=== PATIENT | female | born 1950 | race Caucasian/White ===

== ENCOUNTER 2019-12-24 07:54 | Outpatient (CLI) | payer MEDICARE, SELFPAY ==
--- NOTE | ~2019-12-24 | DEXA_ITS ---
Bone Density Report Name: Dayne Smith Age: 69 Sex: Female Ethnicity: White Date of : 1950 Indication: osteopenia; monitoring treatment; height loss; inflammatory bowel disease; prior fracture; Referring Provider: MARIAH, CAYETANO Study: Bone densitometry was performed. Exam Date: December 24, 2019 Accession number: [id number] Bone Density: Region BMD T-score Z-score Classification AP Spine (L1, L2) 0.948 -0.3 1.8 Normal Femoral Neck (Left) 0.658 -1.7 0.2 Osteopenia Total Hip (Left) 0.730 -1.7 -0.1 Osteopenia World Health Organization criteria for BMD impression classify patients as: Normal (T-score at or above -1.0), Osteopenia (T-score between -1.0 and -2.5), or Osteoporosis (T-score at or below -2.5). 10-year Fracture Risk: FRAX not reported because: Treated for osteoporosis Previous Exams: Region Exam Age BMD T-score BMD Change BMD Change Date g/cm2 vs Baseline vs Previous AP Spine(L1, L2) 12/24/2019 69 0.948 -0.3 0.008(0.9%)# 0.034(3.7%)* 09/13/2015 65 0.914 -0.6 -0.026(-2.8%)# -0.026(-2.8%)# 08/05/2013 63 0.940 -0.4 Total Hip(Left) 12/24/2019 69 0.730 -1.7 -0.037(-4.8%)# -0.042(-5.4%)* 09/13/2015 65 0.772 -1.4 0.005(0.6%)# 0.005(0.6%)# 08/05/2013 63 0.767 -1.4 *Denotes significance at 95% confidence level, LSC for AP Spine = 0.022 g/cm2, LSC for Total Hip = 0.027 g/cm2 Clinical Information Provided by Patient: Has had a low trauma fracture Is being treated for osteoporosis Has used the following medications: Fosamax (i.e. alendronate), Vitamin D, Calcium Has the following medical conditions: Inflammatory bowel diseases Patient maximum height was 64 Menopause Age: 48 No regular weight bearing exercise Does not regularly consume dairy products Onset of menses at age 11 Number of children 0 Impression: The patient has low bone mass, based on the Left Total Hip T-score. The patient has risk factors, including: previous fracture. The BMD for the Total Hip(Left) decreased, changing by -5.4% since the last DXA exam. Discussion: SIGNIFICANT BONE LOSS OBSERVED. Adherence to therapy (including calcium and vitamin D intake) should be assessed. If compliance is not a factor, review management and exclusion of secondary causes of bone loss. It is important to ask patients whether they are taking their medications and to encourage continued and appropriate compliance with their osteoporosis therapies to reduce fracture risk. It is also important to review their risk factors and encourage appropr
--- NOTE | ~2019-12-24 | MM_ITS ---
EXAMINATION: MM screening tereza BI w roc HISTORY: Screening mammogram TECHNIQUE: Craniocaudal and mediolateral oblique 3-D tomosynthesis images were obtained and synthetic 2-D images were generated. CAD analysis was submitted and interpreted. COMPARISON: 12/16/2018, 09/13/2015 bilateral digital screening mammogram examinations.... BREAST PARENCHYMAL COMPOSITION: There are scattered areas of fibroglandular density. FINDINGS: Stable mild fibroglandular asymmetry. There is no evidence of suspicious mass, calcificatio n, or architectural distortion to suggest malignancy in either breast. There has been no suspicious i nterval change. IMPRESSION: 1. No mammographic evidence of malignancy. 2. Recommend routine screening mammography in one year. BI-RADS Category 2: Benign finding(s). Reviewed, dictated and finalized at location A. 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
== END 2019-12-24 07:55 | disposition home or self-care (01) ==
LOC: ANHIMG 08:01
PROVIDERS: PCP Internal Medicine; Visit Provider Nurse Practitioner Family
DX: Z12.31 Encounter for screening mammogram for malignant neoplasm of breast (principal); M85.852 Other specified disorders of bone density and structure, left thigh
CPT/HCPCS: 77063; 77067; 77080

== ENCOUNTER 2020-07-14 12:29 | Emergency (ER) | payer MEDICARE, SELFPAY ==
--- NOTE | ~2020-07-14 | CT_ITS ---
EXAMINATION: CT facial & cervical spine wo EXAM DATE: 07/14/2020 13:30 INDICATION: Fell on Friday, head injury. TECHNIQUE: Spiral CT of the facial bones was acquired in the axial plane. Coronal reformatted images were also reviewed. Spiral CT of the cervical spine was performed without contrast. Axial images we re reviewed. Coronal and sagittal reformatted images were also reviewed. The dose-length product (DL P) for this examination was 419.19 mGy-cm. The exposure was tailored according to patient size, and iterative reconstruction (ASIR) was used as additional dose reduction technique. There is no prior s tudy for comparison. FINDINGS: FACIAL CT: There are no displaced acute nasal bone fractures. The mandible, sinuses and orbits are i ntact. The orbits, globes and extraocular muscles are unremarkable. The visualized sinuses and ma stoid air cells are well aerated. CERVICAL CT: There is no evidence of acute cervical fracture. The odontoid process is intact. Pre-d ens space is normal. Prevertebral soft tissue is normal. There are no soft tissue abnormalities joshua ntified. There is no disc space widening or traumatic vertebral body subluxation suspected. There i s moderate to severe disc disease C4-C7. Overall moderate cervical arthropathy. A detailed level by level evaluation of spondylosis can be added as addendum if requested. IMPRESSION: 1. No acute facial or cervical fracture. Reviewed, dictated and finalized at location B.
--- NOTE | ~2020-07-14 | CT_ITS ---
EXAMINATION: CT brain wo con EXAM DATE: 07/14/2020 13:29 INDICATION: Fell on Friday, struck head on ground, head injury. Right orbital bruising. Dizziness. TECHNIQUE: Spiral CT of the head was performed without contrast. Axial, coronal and sagittal images were reviewed. The dose-length product (DLP) for this examination was 605.33 mGy-cm. The exposure w as tailored according to patient size, and iterative reconstruction (ASIR) was used as additional dos e reduction technique. Comparison is made to prior examination from 02/22/2019. FINDINGS: There is no acute intraparenchymal hemorrhage. No evidence of intraparenchymal brain mass lesion. No evidence of acute infarction. Please note that initial head CT has limited sensitivity f or small or acute infarctions. Some dural ossifications. There is mild periventricular and subcorti alen hypodensity, nonspecific but probably related to small vessel ischemic disease. There is modera te prominence of the sulci and ventricles related to cerebral atrophy. There is intracranial caroti d arteriosclerosis. There are no extra-axial collections. There is no mass effect or midline shift. The orbits are unremarkable. Soft tissue is unremarkable. The visualized sinuses and mastoid air cells are well aerated. There is no significant interval change. IMPRESSION: 1. No acute intracranial findings. 2. Chronic age related findings. Reviewed, dictated and finalized at location B.
[2020-07-14 13:00] VITALS: BP 112/59; PULSE 85; RESP 18; TEMP 36.4; O2SAT 98
--- NOTE | 2020-07-14 13:19 | PC.NURSE ---
Pt to CT.
--- NOTE | 2020-07-14 13:19 | PC.NURSE ---
Pt to ED with complaints of fall 5 days ago. Pt denies LOC. Has bruising noted to right eye. Pt denies dizziness or visual changes. Denies pain at this time. A&O x4.
--- NOTE | 2020-07-14 13:46 | ED.HEATRA ---
HPI - Head Injury General Chief complaint: Head Injury Stated complaint: fall, HI Time Seen by Provider: 07/14/20 13:15 Source: patient Mode of arrival: ambulatory Limitations: no limitations History of Present Illness HPI Narrative: Patient is a 70-year-old female sent here by her PCP to be evaluated after head injury from a trip and fall approximately 1 week ago at home. Patient states that she tripped on a rug hit the right side of her face and head, denies LOC. Patient states her pain is mild and does not want anything for pain. Patient states she is only here because she was sent by her doctor. Patient denies any neck pain back pain chest pain abdominal pain or any other extremity pain/injury. Related Data Allergies Allergy/AdvReac Type Severity Reaction Status Date / Time propoxyphene Allergy Mild BODY HEATS Verified 07/14/20 13:10 UP hydrocodone Allergy Unknown Rash Verified 07/14/20 13:10 morphine Allergy Unknown Rash Verified 07/14/20 13:10 codeine AdvReac Mild UPSET Verified 07/14/20 13:10 STOMACH Review of Systems Review of Systems: All systems reviewed & are unremarkable except as noted in HPI and below Constitutional: Constitutional: Denies body ache(s), Denies chills, Denies excessive sweating, Denies fatigue, Denies fever(s), Denies headache(s), Denies lethargy, Denies malaise, Denies weakness and Denies weight loss Eyes: Eyes: Denies blurry vision, Denies change in vision and Denies loss of vision ENT: Denies dizziness, Denies ear discharge, Denies headache(s), Denies lip swelling, Denies epistaxis, Denies nasal congestion, Denies neck pain, Denies throat swelling and Denies tongue swelling Cardiovascular: Cardiovascular: Denies chest pain, Denies chest pain at rest, Denies chest pain with activity, Denies diaphoresis, Denies rapid heart rate, Denies edema, Denies irregular heart rhythm, Denies lightheadedness, Denies palpitations, Denies dyspnea and Denies dyspnea on exertion Respiratory: Respiratory: Denies chest congestion, Denies cough, Denies hemoptysis, Denies dyspnea and Denies dyspnea on exertion Gastrointestinal: Gastrointestinal: Denies abdominal pain, Denies melena, Denies hematochezia, Denies diarrhea, Denies nausea, Denies vomiting and Denies hematemesis Musculoskeletal: Musculoskeletal: Denies abnormal gait, Denies deformity, Denies joint swelling, Denies limited range of motion, Denies neck pain and Denies numbness Neurologic: Denies Abnormal speech present, Denies abnormal gait, Denies confusion, Denies dizziness, Denies headache(s), Denies focal weakness, Denies loss of vision, Denies numbness, Denies Other visual disturbances, Denies Sensory deficit (Neuro) and Denies weakness Psychiatric: Psychiatric: Denies confusion, Denies depression, Denies auditory hallucinations, Denies homicidal ideation and Denies suicidal ideation Endocrine: Endocrine: Denies cold intolerance, Denies excessive sweating, Denies fatigue, Denies heat intolerance and Denies palpitations Hematologic/Lymphatic: Hematologic/Lymphatic: Denies easy bleeding and Denies easy bruising Allergic/Immunologic: Allergic/Immunologic: Denies lip swelling, Denies throat swelling and Denies tongue swelling PMFSH Family History Family History (Updated 05/17/16 @ 23:19 by DOCTOR UNKNOWN) Sibling Depression Family history of malignant neoplasm of ovary Family history of mental disorder Father Family history of malignant neoplasm Family history of diabetes mellitus in first degree relative Family history of heart disease in male family member before age 55 Mother Family history of heart disease in male family member before age 55 Family history of thyroid disease Family history of osteoporosis Family history of mental disorder Depression Family history of cataracts Other Family history of anemia Family history of migraine headaches Social History Social History Smoking status: Never smoker Second hand tob
[2020-07-14] MEDS: TETANUS,DIPHTHERIA,AC PERTUSSIS ADULT (0.5 ML) BOOSTRIX IM (14:11)
--- NOTE | 2020-07-14 14:51 | PC.NURSE ---
Pt in room. Awaiting further orders or disposition. Family member at bedside. Call light within reach.
--- NOTE | 2020-07-14 15:02 | PC.NURSE ---
Pt to nurses station and reports she is leaving as she does not want to wait any longer. ERP was made aware. Pt ambulated out of ED. Unable to obtain discharge vital signs.
== END 2020-07-14 15:02 | disposition home or self-care (01) ==
PROVIDERS: Emergency Provider Emergency Medicine; PCP Nurse Practitioner Family
DX: S00.03XA Contusion of scalp, initial encounter (principal); W18.09XA Striking against other object with subsequent fall, initial encounter; Z23 Encounter for immunization
CPT/HCPCS: 70450; 70486; 72125; 90471; 90715; 99284

== ENCOUNTER 2021-03-09 20:15 | Emergency (ER) | payer MEDICARE, SELFPAY ==
--- NOTE | ~2021-03-09 | XR_ITS ---
EXAMINATION: XR shoulder RT min 2V INDICATION: Right shoulder pain, initial encounter TECHNIQUE: Three views of the right shoulder are submitted. COMPARISON: None FINDINGS: There is an acute, traumatic, closed, comminuted fracture of the proximal humerus. The eveline ral head appears to be anteriorly and inferiorly displaced with respect to the glenoid. The greater t uberosity resides near its normal position. The acromioclavicular joint is normal. IMPRESSION: 1. Comminuted fracture of the proximal right humerus. Reviewed, dictated and finalized at location A.
--- NOTE | ~2021-03-09 | CT_ITS ---
EXAMINATION: CT shoulder RT wo con DATE: 03/09/2021 22:28 INDICATION: Right shoulder pain, humerus fracture TECHNIQUE: Computed tomography (CT) of the right shoulder was performed without intravenous contrast. The dose-length product (DLP) was 239.47 mGy-cm. Automated exposure control and iterative reconstruc tion technique were employed. COMPARISON: Right shoulder radiograph from today FINDINGS: There is a comminuted fracture of the proximal right humerus. The humeral head is displaced inferior and medial to the glenoid. The humeral shaft is partially migrated approximately into the g lenohumeral joint space. The greater tuberosity lies anterior and lateral to the humeral shaft. A lacey nt effusion is present. No additional fracture is identified. The visualized portions of the right th orax are unremarkable. IMPRESSION: 1. Comminuted fracture of the right proximal humerus as detailed above. Reviewed, dictated and finalized at location A.
[2021-03-09 20:17] VITALS: BP 154/82; PULSE 85; RESP 20; TEMP 36.4; O2SAT 99
[2021-03-09] MEDS: oxyCODONE/ACETAMINOPHEN (*CRX) 5-325 MG TABLET 1 TABLET PO (21:36)
--- NOTE | 2021-03-09 23:40 | ED.UPPEXIN ---
HPI - Extremity Injury (Upper) General Chief Complaint: Extremity Injury, Upper Stated Complaint: glf - rt shoulder/arm/elbow pain Time Seen by Provider: 03/09/21 20:19 Source: patient and family Mode of arrival: ambulatory Limitations: no limitations History of Present Illness HPI narrative: 70-year-old female Here for right arm injury Patient was outside with her and stumbled and fell on the sidewalk after they wash their dog She landed on her right side with immediate pain to the right shoulder No loss of consciousness nor any other injuries He has pain and swelling and diminished range of motion there but no numbness in her hand or arm Related Data Allergies Allergy/AdvReac Type Severity Reaction Status Date / Time propoxyphene Allergy Mild BODY HEATS Verified 07/14/20 13:10 UP hydrocodone Allergy Unknown Rash Verified 07/14/20 13:10 morphine Allergy Unknown Rash Verified 07/14/20 13:10 codeine AdvReac Mild UPSET Verified 07/14/20 13:10 STOMACH Review of Systems Review of Systems: All systems reviewed & are unremarkable except as noted in HPI and below Constitutional: Constitutional: Denies headache(s) ENT: Denies headache(s) Cardiovascular: Cardiovascular: Denies chest pain and Denies dyspnea Genitourinary: Genitourinary: Denies urinary frequency Musculoskeletal: Musculoskeletal: Denies back pain, Denies deformity, Reports arthralgias, Reports joint swelling and Denies numbness Integumentary/Breasts: Skin/Breast: Denies wounds Neurologic: Denies headache(s), Denies focal weakness and Denies numbness [facility] Family History Family History (Updated 05/17/16 @ 23:19 by DOCTOR UNKNOWN) Sibling Depression Family history of malignant neoplasm of ovary Family history of mental disorder Father Family history of malignant neoplasm Family history of diabetes mellitus in first degree relative Family history of heart disease in male family member before age 55 Mother Family history of heart disease in male family member before age 55 Family history of thyroid disease Family history of osteoporosis Family history of mental disorder Depression Family history of cataracts Other Family history of anemia Family history of migraine headaches Social History Social History Smoking status: Never smoker Second hand tobacco smoke exposure: Yes Alcohol intake: never Gender identity (if verbalized by the patient): Male Exam Const: General: cooperative, no acute distress and alert Orientation/consciousness: patient oriented x3 (alert) HENMT: Head: normal to inspection, normocephalic, atraumatic, no contusions and no hematomas Ears: external ears normal General nose exam: no epistaxis Eyes: Conjunctivae: conjunctivae normal EOM: EOMs intact bilaterally Neck: Neck: normal visual inspection, supple and no JVD Chest: Chest palpation & inspection: normal inspection of the chest and no tenderness Resp: Effort & Inspection: normal respiratory effort and not labored Auscultation: clear to auscultation bilaterally and other (BS =) Back/Spine/Pelvis: Other: No back tenderness Skin: General skin exam: normal color and no rashes or lesions noted Neuro: General: patient oriented x3 (alert) and moves all extremities Speech: normal speech Extrem: Other: There is swelling of the proximal humerus on the right, it does not appear squared off or dislocated, more likely fractured Elbow and wrist have normal 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 Cifuentes who will see her in the office and asked that we get a CT scan of the shoulder while she is here She was placed in a shoulder immobilizer and tolerated well Vital Signs Vital signs: Vital Signs Temperature 36.4 C 03/09/21 20:17 Pulse Rate 85 03/09/21 20:17 Respiratory Rate 2
[2021-03-10] MEDS: MAG HYDROX/AL HYDROX/SIMETH 30 ML UDC PO (00:05)
[2021-03-10] MEDS: oxyCODONE/ACETAMINOPHEN (*CRX) 5-325 MG TABLET 1 TABLET PO (00:05)
[2021-03-10 00:30] VITALS: BP 149/82; PULSE 83; RESP 18; O2SAT 97
== END 2021-03-10 00:35 | disposition home or self-care (01) ==
PROVIDERS: Emergency Provider Emergency Medicine; PCP Nurse Practitioner Family
DX: S42.291A Other displaced fracture of upper end of right humerus, initial encounter for closed fracture (principal); W01.0XXA Fall on same level from slipping, tripping and stumbling without subsequent striking against object, initial encounter; Y93.K3 Activity, grooming and shearing an animal
CPT/HCPCS: 73030; 73200; 99284; A4565; A9270

== ENCOUNTER 2022-08-10 10:39 | Outpatient (CLI) | payer MEDICARE, SELFPAY ==
[2022-08-10 11:27] LABS: Alanine Aminotransferase 21 U/L (6-35); Albumin Level 3.9 g/dL (3.5-5.1); Alkaline Phosphatase 65 U/L (38-126); Anion Gap 10 mmol/L (8-16); Aspartate Amino Transferase 26 U/L (14-36); Bilirubin,Total 0.2 mg/dL (0.2-1.3); Blood Urea Nitrogen 6 mg/dL (7-17); Carbon Dioxide 27 mmol/L (22-30); Chloride 105 mmol/L (98-107); Estimated Glomerular Filt Rate 49; Glucose 116 mg/dL (65-110); Potassium 3.2 mmol/L (3.4-5.0); Sodium 142 mmol/L (137-145)
[2022-08-10 11:50] LABS: Basophils Percent Auto 0.9 % (0.2-1.2); Eosinophils Absolute Auto 0.2 K/mm3 (0-0.3); Eosinophils Percent Auto 4.5 % (0-4.4); Hematocrit 37.5 % (37.0-47.0); Hemoglobin 11.8 g/dL (12.0-15.0); Immature Granulocyte Absolute 0.01 K/mm3 (0.00-0.031); Immature Granulocyte Percent A 0.2 % (0-0.5); Mean Corpuscular HGB Conc 31.5 g/dl (32-36); Mean Corpuscular Hemoglobin 29.2 pg (26-34); Mean Corpuscular Volume 92.8 fl (80-100); Mean Platelet Volume 9.1 fl (7.4-10.4); Monocytes Absolute Auto 0.7 K/mm3 (0.1-0.6); Monocytes Percent Auto 15.1 % (2.6-8.5); Neutrophils Absolute Auto 2.2 K/mm3 (1.3-6.7); Neutrophils Percent Auto 47.3 % (45.5-73.1); Platelet Count Result 257 k/mm3 (150-375); Red Blood Count 4.04 M/mm3 (4.2-5.4); Red Cell Distribution Width 13.3 % (11.5-14.5); White Blood Count 4.7 K/mm3 (4.5-10.0)
== END 2022-08-10 10:40 | disposition home or self-care (01) ==
LOC: ANHLAB 10:42
PROVIDERS: PCP Nurse Practitioner Family; Visit Provider Registered Nurse
DX: K92.1 Melena (principal)
CPT/HCPCS: 36415; 80053; 85025

== ENCOUNTER 2023-05-20 15:29 | Emergency (ER) | payer MEDICARE, SELFPAY ==
[2023-05-20 15:38] VITALS: BP 116/56; PULSE 86; RESP 20; TEMP 36.9; O2SAT 97
[2023-05-20 15:53] LABS: Basophils Percent Auto 0.7 % (0.2-1.2); Eosinophils Absolute Auto 0.2 K/mm3 (0-0.3); Eosinophils Percent Auto 2.5 % (0-4.4); Hematocrit 36.7 % (37.0-47.0); Hemoglobin 11.7 g/dL (12.0-15.0); Immature Granulocyte Absolute 0.01 K/mm3 (0.00-0.031); Immature Granulocyte Percent A 0.2 % (0-0.5); Lymphocytes Absolute Auto 1.74 K/mm3 (0.9-3.2); Lymphocytes Percent Auto 29.3 % (18.3-44.2); Mean Corpuscular HGB Conc 31.9 g/dl (32-36); Mean Corpuscular Hemoglobin 29.9 pg (26-34); Mean Corpuscular Volume 93.9 fl (80-100); Mean Platelet Volume 9.1 fl (7.4-10.4); Monocytes Absolute Auto 0.5 K/mm3 (0.1-0.6); Monocytes Percent Auto 7.7 % (2.6-8.5); Neutrophils Absolute Auto 3.5 K/mm3 (1.3-6.7); Neutrophils Percent Auto 59.6 % (45.5-73.1); Platelet Count Result 248 k/mm3 (150-375); Red Blood Count 3.91 M/mm3 (4.2-5.4); Red Cell Distribution Width 13.2 % (11.5-14.5); White Blood Count 5.9 K/mm3 (4.5-10.0)
[2023-05-20 16:04] LABS: Alanine Aminotransferase 29 U/L (6-35); Albumin Level 3.9 g/dL (3.5-5.1); Alkaline Phosphatase 57 U/L (38-126); Anion Gap 2 mmol/L (8-16); Aspartate Amino Transferase 32 U/L (14-36); Bilirubin,Total 0.3 mg/dL (0.2-1.3); Blood Urea Nitrogen 9 mg/dL (7-17); Calcium 9.1 mg/dL (8.4-10.2); Carbon Dioxide 26 mmol/L (22-30); Chloride 107 mmol/L (98-107); Estimated CRCL calculation 41 ml/min; Estimated Glomerular Filt Rate 54; Glucose 108 mg/dL (65-110); Sodium 135 mmol/L (137-145)
--- NOTE | 2023-05-20 16:08 | ED.FEMALEGU ---
HPI - Female Genitourinary General Chief complaint: Fever Stated complaint: sent by PCP for fever and UTI for a long time Time Seen by Provider: 05/20/23 15:49 History of Present Illness HPI Narrative: Pt presents with fever for a couple of days. Pt has had UTI intermittently for quite some time and has just completed a course of augmentin and now symptoms have recurred. Pt having dysuria and frequncy. Pt called PCP and advised to go to ER for IV antibiotics. Related Data Allergies Allergy/AdvReac Type Severity Reaction Status Date / Time propoxyphene Allergy Mild BODY HEATS Verified 05/20/23 15:30 UP hydrocodone Allergy Unknown Rash Verified 05/20/23 15:30 morphine Allergy Unknown Rash Verified 05/20/23 15:30 codeine AdvReac Mild UPSET Verified 05/20/23 15:30 STOMACH Review of Systems Review of Systems: All systems reviewed & are unremarkable except as noted in HPI and below PMFSH Family History Family History (Updated 05/17/16 @ 23:19 by DOCTOR UNKNOWN) Sibling Depression Family history of malignant neoplasm of ovary Family history of mental disorder Father Family history of malignant neoplasm Family history of diabetes mellitus in first degree relative Family history of heart disease in male family member before age 55 Mother Family history of heart disease in male family member before age 55 Family history of thyroid disease Family history of osteoporosis Family history of mental disorder Depression Family history of cataracts Other Family history of anemia Family history of migraine headaches Social History Social History Smoking status: Never smoker Second hand tobacco smoke exposure: Yes Alcohol intake: never Gender identity (if verbalized by the patient): Male Exam Const: General: healthy appearing Nutritional Appearance: well nourished Orientation/consciousness: patient oriented x3 Limitations: no limitations Eyes: EOM: EOMs intact bilaterally Neck: Neck: normal visual inspection and no lymphadenopathy Resp: Effort & Inspection: normal respiratory effort Auscultation: clear to auscultation bilaterally Cardio: Rate: regular rate Rhythm: regular rhythm GI: GI Palp: Yes Soft to palpation and Yes Tenderness to palpation present (GI) (mild suprapubic) Auscultation: normal bowel sounds : General: Yes no CVA tenderness Back/Spine/Pelvis: Back: no CVA tenderness Skin: General skin exam: normal color Rashes: no rashes Wounds: no wounds Neuro: General: patient oriented x3, moves all extremities, no meningeal signs and no focal motor deficits Speech: normal speech Extrem: General: normal to inspection and no clubbing, cyanosis or edema Psych: Appearance: grossly normal and well kempt Mental Status: mental status grossly normal Affect: normal affect Attitude: cooperative Course Vital Signs Vital signs: Vital Signs Temperature 98.5 F 05/20/23 15:38 Pulse Rate 86 05/20/23 15:38 Respiratory Rate 20 05/20/23 15:38 Blood Pressure 116/56 L 05/20/23 15:38 Pulse Oximetry 97 05/20/23 15:38 Oxygen Delivery Room Air 05/20/23 15:38 Temperature 98.5 F 05/20/23 15:38 Pulse Rate 84 05/20/23 17:45 Respiratory Rate 16 05/20/23 17:45 Blood Pressure 133/68 05/20/23 17:45 Pulse Oximetry 99 05/20/23 17:45 Oxygen Delivery Room Air 05/20/23 15:38 MDM - Female Genitourinary MDM Narrative Medical decision making narrative: pt seems to have persistent UTI which may have been resistant to augmentin. Will order labs and UA and give IV Rocephin. Lab Data 05/20/23 15:48 05/20/23 15:48 Labs: Lab Results 05/20/23 05/20/23 Range/Units 15:48 17:43 WBC 5.9 (4.5-10.0) K/mm3 RBC 3.91 L (4.2-5.4) M/mm3 Hgb 11.7 L (12.0-15.0) g/dL Hct 36.7 L (37.0-47.0) % MCV 93.9 (80-100) fl MCH 29.9 (26-34) pg MCHC 31.9 L (32-36) g/dl RDW 13.2 (11.5-14.5) % Plt C
[2023-05-20 16:25] VITALS: BP 115/69; PULSE 81; RESP 18; O2SAT 98
[2023-05-20] MEDS: SODIUM CHLORIDE 0.9% IV 1,000 ML 999 ML IV CONT (16:31)
[2023-05-20] MEDS: cefTRIAXone 2 GM/NS 100 ML 2 GM/100 ML BAG IVPB (16:36)
[2023-05-20 17:45] VITALS: BP 133/68; PULSE 84; RESP 16; O2SAT 99
[2023-05-20 18:07] LABS: Appearance Urine Clear (Clear); Color Urine Dark Orange (Yellow); Specific Grav Ur 1.017 (1.001-1.035)
[2023-05-20 18:08] LABS: Bilirubin Urine 2+ (Negative); Blood Urine Negative (Negative); Glucose Urine UA Negative (Negative); Ketones Urine Negative (Negative); Leukocyte Esterase Ur 2+ LEU/UL (Negative); Nitrate Urine Positive (Negative); Protein Urine 1+ mg/dL (Negative); RBC Urine 0-2 /hpf (0-2); WBC Urine 0-5 /hpf
[2023-05-20 18:09] LABS: Squamous Epithelial Cell Urine None seen /hpf (Few)
[2023-05-20 18:11] LABS: Bacteria Urine Trace /hpf; Need Manual Microscopic Yes; Non Pathogenic Casts Present
[2023-05-20 18:12] LABS: Add Urine Microscopic? YES
[2023-05-20 18:27] VITALS: BP 129/77; PULSE 70; RESP 15; O2SAT 99
== END 2023-05-20 18:29 | disposition home or self-care (01) ==
PROVIDERS: Emergency Provider Emergency Medicine; PCP Nurse Practitioner Family
DX: N39.0 Urinary tract infection, site not specified (principal)
CPT/HCPCS: 36415; 80053; 81001; 85025; 87040; 96365; 99284; J0696; J7030

== ENCOUNTER 2023-11-28 23:41 | Emergency (ER) | payer MEDICARE, SELFPAY ==
--- NOTE | ~2023-11-28 | CT_ITS ---
EXAMINATION: CT chest abdomen pelvis w con DATE: 11/29/2023 09:34 INDICATION: Right-sided chest and abdominal pain TECHNIQUE: Transaxial computed tomographic images of the chest, abdomen, and pelvis were obtained aft er the administration of 100 cc of Omnipaque 350 intravenous contrast. The dose-length product (DLP) was 950.09 mGy-cm. Automated exposure control and iterative reconstruction technique were employed. COMPARISON: 07/31/2008 FINDINGS: CHEST CT: There is mild dependent atelectasis of the right lung. A 4 mm subpleural nodule of the left lower lob e demonstrates slight interval increase in size since the 2007 comparison. There is a 7 mm subpleural nodule in the right lower lobe (image 61). There is a 4 mm subpleural nodule in the right middle lob e (image 64). No pleural effusion or pneumothorax. There is a minimally displaced lateral fracture of the right eighth rib. No pathologically enlarged thoracic lymph nodes are identified. The heart size is normal. There is a 10 mm nodule of the right thyroid. There is a moderate-sized sliding hiatal he rnia. There are changes of right total shoulder arthroplasty. ABDOMEN/PELVIS CT: Changes of cholecystectomy are noted. The liver, spleen, pancreas, and adrenal glands are normal. The kidneys are unremarkable. No pathologically enlarged abdominal or pelvic lymph nodes are identified. There are surgical changes of the transverse colon. A moderate volume of colonic stool is present. N o free intraperitoneal gas or evidence of bowel obstruction. There is severe lumbar spondylosis. The urinary bladder is mildly distended. There is an umbilical hernia containing a small amount of anteri or colonic wall. There are changes of right hip arthroplasty. IMPRESSION: 1. Minimally displaced lateral fracture of the right eighth rib. 2. Right lung nodules measuring up to 7 mm. Follow-up low-dose CT in 6-12 months is recommended. 3. No acute findings of the abdomen or pelvis. Reviewed, dictated and finalized at location F. 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 Minimally displaced lateral fracture of the right eighth rib. 2. Right lung nodules measuring up to 7 mm. Follow-up low-dose CT in 6-12 month s is recommended. 3. No acute findings of the abdomen or pelvis.
--- NOTE | ~2023-11-28 | XR_ITS ---
EXAMINATION: XR chest 2V DATE: 11/29/2023 06:17 INDICATION: Right-sided rib pain after fall TECHNIQUE: Frontal and lateral views of the chest are obtained COMPARISON: 08/12/2016 FINDINGS: The lungs are free of acute opacities. No pleural effusion or pneumothorax. The cardiomedia stinal silhouette is normal. There is moderate thoracic spondylosis. There are changes of interval to yoel right shoulder arthroplasty. No rib fracture is identified. IMPRESSION: 1. No acute cardiopulmonary abnormality. No rib fracture identified. Reviewed, dictated and finalized at location F. HER IN
[2023-11-29 00:14] VITALS: BP 120/66; PULSE 80; RESP 15; TEMP 36.1; O2SAT 98
[2023-11-29 05:19] VITALS: BP 122/66; PULSE 78; RESP 15; O2SAT 98
--- NOTE | 2023-11-29 07:24 | ED.FALL ---
HPI - Fall General Chief Complaint: Fall Stated Complaint: right sided rib pain, fall 2 days ago Time Seen by Provider: 11/29/23 07:17 Source: patient History of Present Illness HPI Narrative: 73 years old white female history of balance disorder, lost her balance and fell landed on her walker 2 days ago complaining of severe right lower ribs and right upper quadrant pain, getting worse. Patient is allergic to morphine causing hives, okay with Dilaudid. Patient denies other injuries Related Data Allergies Allergy/AdvReac Type Severity Reaction Status Date / Time propoxyphene Allergy Mild BODY HEATS Verified 11/29/23 05:20 UP hydrocodone Allergy Unknown Rash Verified 11/29/23 05:20 morphine Allergy Unknown Rash Verified 11/29/23 05:20 codeine AdvReac Mild UPSET Verified 11/29/23 05:20 STOMACH Review of Systems Review of Systems: All systems reviewed & are unremarkable except as noted in HPI and below PMFSH Family History Family History Sibling Depression Family history of malignant neoplasm of ovary Family history of mental disorder Father Family history of malignant neoplasm Family history of diabetes mellitus in first degree relative Family history of heart disease in male family member before age 55 Mother Family history of heart disease in male family member before age 55 Family history of thyroid disease Family history of osteoporosis Family history of mental disorder Depression Family history of cataracts Other Family history of anemia Family history of migraine headaches Social History Social History Smoking status: Never smoker Second hand tobacco smoke exposure: Yes Alcohol intake: never Gender identity (if verbalized by the patient): Male Exam Narrative: General appearance: Well-developed, well-nourished Skin: Normal color Head: Normocephalic, nontraumatic Eyes: Clear conjunctiva ENT: Oropharynx normal, ears normal, nose normal Neck: Supple, nontender Chest and respiratory: Airway patent, no respiratory distress, no accessory muscle use, severe tenderness right lower ribs with palpation Heart: Regular rate/rhythm Abdomen: Soft, severe tenderness right upper quadrant, bruises, Vascular: Normal peripheral pulses, normal capillary refill. Musculoskeletal: Normal range of motion, nontender back Neurologic: Alert and oriented ?3, TABLE MAKER is normal as tested, no gross motor deficit Course Vital Signs Vital signs: Vital Signs Temperature 36.1 C L 11/29/23 00:14 Pulse Rate 80 11/29/23 00:14 Respiratory Rate 15 11/29/23 00:14 Blood Pressure 120/66 11/29/23 00:14 Pulse Oximetry 98 11/29/23 00:14 Oxygen Delivery Room Air 11/29/23 00:14 Temperature 36.1 C L 11/29/23 00:14 Pulse Rate 78 11/29/23 09:48 Respiratory Rate 18 11/29/23 09:48 Blood Pressure 129/70 11/29/23 09:48 Pulse Oximetry 99 11/29/23 09:48 Oxygen Delivery Room Air 11/29/23 00:14 MDM - Fall MDM Narrative Medical decision making narrative: Differential diagnosis right rib fracture, pulmonary contusion, pneumothorax, hemothorax, liver injury Workup today showed right 8th rib fracture and pulmonary nodule In the ED patient received Dilaudid IV, Zofran IV and Benadryl IV. Patient was discharged on incentive spirometry. the pt was discharged to home.the pt,s condition upon discharge was fair,education was provided to the pt in reference to the final impression,discharge study results,treatment,prognosis and need for follow up . Differential Diagnosis Differential diagnosis: Likely
[2023-11-29] MEDS: ONDANSETRON INJ 4 MG/2 ML VIAL IV PUSH (07:51)
[2023-11-29] MEDS: HYDROmorphone HCL INJ (*CRX) 1 MG/ML SYR 0.5 MG IV PUSH (07:51)
[2023-11-29] MEDS: SODIUM CHLORIDE 0.9% IV 1,000 ML 999 ML IV CONT (07:52)
[2023-11-29 08:00] VITALS: BP 110/60; PULSE 68; RESP 16; O2SAT 98
[2023-11-29 08:16] LABS: Alanine Aminotransferase 16 U/L (6-35); Albumin Level 3.2 g/dL (3.5-5.1); Alkaline Phosphatase 53 U/L (38-126); Anion Gap 4 mmol/L (8-16); Aspartate Amino Transferase 24 U/L (14-36); Bilirubin,Total 0.2 mg/dL (0.2-1.3); Blood Urea Nitrogen 17 mg/dL (7-17); Calcium 8.6 mg/dL (8.4-10.2); Carbon Dioxide 25 mmol/L (22-30); Chloride 109 mmol/L (98-107); Estimated CRCL calculation 49 ml/min; Estimated Glomerular Filt Rate > 60; Glucose 98 mg/dL (65-110); Lipase 315 U/L (23-300); Potassium 3.6 mmol/L (3.4-5.0); Sodium 138 mmol/L (137-145)
[2023-11-29 08:17] LABS: Basophils Absolute Auto 0.1 K/mm3 (0.0-0.1); Basophils Percent Auto 0.6 % (0.2-1.2); Eosinophils Absolute Auto 0.3 K/mm3 (0-0.3); Eosinophils Percent Auto 3.1 % (0-4.4); Hematocrit 35.7 % (37.0-47.0); Hemoglobin 11.1 g/dL (12.0-15.0); Immature Granulocyte Absolute 0.02 K/mm3 (0.00-0.031); Immature Granulocyte Percent A 0.2 % (0-0.5); Lymphocytes Absolute Auto 2.52 K/mm3 (0.9-3.2); Lymphocytes Percent Auto 28.3 % (18.3-44.2); Mean Corpuscular HGB Conc 31.1 g/dl (32-36); Mean Corpuscular Volume 96.5 fl (80-100); Mean Platelet Volume 8.8 fl (7.4-10.4); Monocytes Absolute Auto 0.8 K/mm3 (0.1-0.6); Monocytes Percent Auto 8.4 % (2.6-8.5); Neutrophils Absolute Auto 5.3 K/mm3 (1.3-6.7); Neutrophils Percent Auto 59.4 % (45.5-73.1); Platelet Count Result 214 k/mm3 (150-375); Red Cell Distribution Width 12.6 % (11.5-14.5); White Blood Count 8.9 K/mm3 (4.5-10.0)
[2023-11-29] MEDS: diphenhydrAMINE HCl INJ 50 MG/ML VIAL 25 MG IV PUSH (08:44)
[2023-11-29 09:48] VITALS: BP 129/70; PULSE 78; RESP 18; O2SAT 99
== END 2023-11-29 14:12 | disposition home or self-care (01) ==
PROVIDERS: Emergency Provider Emergency Medicine; PCP Nurse Practitioner Family
DX: S22.31XA Fracture of one rib, right side, initial encounter for closed fracture (principal); R91.1 Solitary pulmonary nodule; W01.198A Fall on same level from slipping, tripping and stumbling with subsequent striking against other object, initial encounter
CPT/HCPCS: 36415; 71046; 71260; 74177; 80053; 83690; 85025; 96361; 96374; 96375; 99284; J1170; J1200; J2405; J7030; Q9967

== ENCOUNTER 2024-09-07 09:55 | Emergency (ER) | payer MEDICARE, SELFPAY ==
--- NOTE | 2024-09-07 10:26 | PC.NURSE ---
Upon triaging this pt, Pt decided she does not want to be seen and wants to continue to go visit her bf in the ICU. Pt leaves in NAD.
== END 2024-09-07 10:34 | disposition left against medical advice (07) ==
PROVIDERS: PCP Nurse Practitioner Family
DX: Z53.21 Procedure and treatment not carried out due to patient leaving prior to being seen by health care provider (principal)
CPT/HCPCS: 99199

== ENCOUNTER 2024-12-28 15:38 | Outpatient (CLI) | payer MEDICARE, SELFPAY ==
--- NOTE | ~2024-12-28 | US_ITS ---
EXAMINATION: US thyroid DATE: 12/28/2024 17:07 INDICATION: Thyroid nodule. TECHNIQUE: Multiple ultrasound images of the thyroid were obtained. COMPARISON: CT 07/14/2020 FINDINGS: The right thyroid lobe measures 3.6 x 1.4 x 0.9 cm. The left thyroid lobe measures 3.4 x 1.1 x 1.1 c m. In the right thyroid lobe, there is an 11 mm mixed cystic and solid, hypoechoic, wider than tall nodule with smooth margin without echogenic foci (TI-RADS TR3). In the thyroid isthmus, there is a 6 mm solid, hypoechoic, wider than tall nodule with lobular margin without echogenic foci (TR4). IMPRESSION: 1. Small thyroid nodules, likely not clinically significant. No follow-up is needed. Reviewed, dictated and finalized at location B. IMPRESSION: 1. Small thyroid nodules, likely not clinically significant. No follow-up is ne eded.
--- OUTSIDE RECORDS SUMMARY | 2024-12-28 17:39 | XMS_ITS ---
Author Organization [facility] Virtual Care Address [address] [place] [address] Phone Care Team Providers Care Utility Supervisor Boat And Plant Name Role Phone Desirae Bernstein NP Unavailable [phone] Unknown, Notinfile Primary Care Provider Unavail able Yen Dahl RN Unavailable Unavailabl e Active Problems Patient Care Coordination No te Formatting of this note migh t be different from the original. This is a 73 year old female presenting to us at the request of Dr. Akbar Richards for an evaluation of a hiatal hernia. She has a medical history significant for anemia, anxiety, depression, bipolar disorder, GERD, osteoarthritis and osteopenia. She is a never smoker. 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 She had a recent follow up with Dr. Ge with a surveillance chest CT. She complained of a longstanding history of GERD. She reports some dysphagia and occasional choking. She also has post-prandial abdominal pain and shortness of breath. She went a chest CT on 12/17/2023. There is a small pericardial effusion. No mediastinal, axillary or supraclavicular lymphadenopathy. There is a small subcentimeter nodule in the right lobe of the thyroid that appears unchanged. Moderate-sized hiatal hernia. Gallbladder surgically absent. No suspicious abnormalities evident in the upper abdomen. There are scattered subpleural pulmonary nodules which are not appreciably changed from the prior exam, for instance day 7 mm nodule in the right lower lobe, a 4 mm nodule in the right middle lobe and a 6 mm nodule in the left lower lobe. These nodules appear unchanged dating back to 02/16/2008 and are most certainly benign. No suspicious osseous lesions. There is a subacute appearing right lateral 8th rib fracture. With a small amount of callus formation. She underwent a barium swallow study on 12/29/2023. She is here for further surgical evaluation and discussion. 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 Closed reduction under sedation in ED unsuccessful - OR today, scheduled at 11am -NWB RUE, RUE to be maintained in sling -Hold DVT ppx pending surgical plan -Pain control with Percocet 5/325 2 tabs Q4H PRN, Dilaudid 0.2 IV Q4H PRN for breakthrough pain Assessment & Plan (03/15/2021 1:48 AM CDT): -Comminuted 3 part proximal humerus fracture with dislocation of multiple fragments. Closed reduction under sedation in ED unsuccessful -NWB RUE, RUE to be maintained in sling -Hold DVT ppx pending surgical plan -NPO in case of OR today. Clarify surgical plan with ortho in AM. -Pain control with Percocet 5/325 2 tabs Q4H PRN, Dilaudid 0.2 IV Q4H PRN for breakthrough pain Low back pain 01/23/2021 Mechanical complication of i nternal orthopedic device, implant or graft 01/23/2021 Osteoarthritis of hip 01/23/2021 Pain in limb 01/23/2021 Moderate malnutrition 01/12/2021 Bipolar disorder 01/11/2021 Assessment & Plan (03/15/2021 10:49 AM CDT): -Continue home medications (Effexor XR, lamotrigine, trazodone, Risperdal, Paxil, clonazepam) Assessment & Plan (03/15/2021 1:44 AM CDT): -Continue home medications (Effexor XR, lamotrigine, trazodone, Risperdal, Paxil, clonazepam) Assessment & Plan (01/11/2021 4:10 PM CDT): -continue home psych meds Malignant neoplasm of hilus of lung 01/05/2021 Overview (01/05/2021): Added automatically from request for surgery [id number] Malignant carcinoid tumor of lung 12/28/2020 Assessment & Plan (01/12/2021 11:25 AM CDT): 01/11 VATS YRIS segementectomy - plan to remove L CT: follow up post pull chest x-ray - encourage IS, C&DB -ADAT - bowel regimen - DVT prophylaxis - ambulate w/ assistance - Pain mgnt: acute pain team collaborating in the post op pain mgnt: plan to remove epidural today. Add oral pain medication (avoid narcotics per pt request) Pulmonary nodules 11/01/2020 Colonic mass 08/30/2020 Generalized abdominal pain 08/07/2020 Overview (03/14/2022): Added automatically from request for surgery [id number] Black stools 07/17/2020 Elevated fasting blood sugar 07/17/2020 Fall 07/17/2020 Right hip pain 07/17/2020 Acne 04/06/2020 Dysuria 04/06/2020 External hemorrhoid 04/06/2020 Nevus 04/06/2020 Overweight with body mass in dex (BMI) of 27 to 27.9 in adult 04/06/2020 Vitamin D deficiency 04/06/2020 Blood in stool 07/25/2019 Cough 07/25/2019 Dizziness 07/25/2019 Fever 07/25/2019 Weakness 07/25/2019 Falling episodes 03/24/2019 History of alcohol abuse 03/24/2019 History of partial colectomy 03/24/2019 Memory loss 03/24/2019 Near syncope 03/24/2019 Osteopenia of multiple sites 03/24/2019 Abnormal electrocardiography 08/19/2014 Overview (01/24/2017): Electrocardiogram abnormal Anemia 01/03/2013 Gastro-esophageal reflux disease without esophag itis 01/03/2013 Stage 3a chronic kidney disease 01/03/2013 Current Treatment and Therapy Plans No current plan information found. Past Treatment and Therapy Plans No past plan information found. Lifetime Dose Tracking * Chemical Lifetime Dose Automatic Entry Manual Entr y Fluoro Time 2.2 minutes 2.2 minutes 0 minutes Air kerma at the reference point (Ka,r) 1.53 mGy 1 .53 mGy 0 mGy DLP 3,244 mGycm 3,244 mGycm 0 mGycm Resolved Problems Problem Noted Date Diagnosed Date Resolved Date Neuroendocrine tumor 12/28/2020 021 Assessment & Plan (03/15/2021 10:49 AM CDT): -s/p L upper lobectomy 12/[address] showing a carcinoid tumor, grade 1. Per notes, not adjuvant therapy needed. Assessment & Plan (03/15/2021 1:45 AM CDT): -s/p L upper lobectomy 12/[address] with path showing a carcinoid tumor, grade 1. Per notes, not adjuvant therapy needed.
--- OUTSIDE RECORDS SUMMARY | 2024-12-28 17:39 | XMS_ITS | Patient Health Record ---
Author Organization [facility] Address [address] [place] [address] Support Name Relationship Address Phone Erica Smith Guarantor Unknown [phone] Reason For Referral No Information Plan Of Treatment No Information
--- OUTSIDE RECORDS SUMMARY | 2024-12-28 17:39 | XMS_ITS | Clinical Summary ---
Author Organization [facility] Address [address] [place] [address] Care Team Providers Care Software Security Architect Name Role Phone Desirae Bernstein APRN-TEA AND SPICE SUPERVISOR Primary Care Provider [phone] Source Comments [facility],non-owned Affiliates and Associated Physician Practices is amultiple site organization consisting of ambulatory clinics and hospital sitesin [place], [place], [place] and [place]. This disclosure is being madepursuant to the Care Everywhere program and may not contain all information available regarding this patient. Last updated 18.[facility] Social History Tobacco Use Types Packs/Day Years Used Date Smoking Tobacco: Never Assessed Sex and Gender Information Value Date Recorded Sex Assigned at Not on file Gender Identity Not on file Sexual Orientation Not on file Plan of Treatment Health Maintenance Due Date Last Done Comments BONE DENSITY TESTING 1950 HEPATITIS C SCREENING 05/01/1966 DTAP/TDAP/TD VACCINES (1 - Tdap) 1967 PNEUMOCOCCAL VACCINE 50+ (1 of 1 - PCV) 1998 ZOSTER VACCINE (1 of 2) 1998 Respiratory Syncytial Virus (RSV) Vaccine Pt: or over 60 yrs (1 - 1-dose 75+ series) 2023 COVID-19 VACCINE ( - 2023-2 5 season) 2024 INFLUENZA VACCINE (#1) 2024 DEPRESSION SCREENING 10/20/2024 MEDICARE AWV CALENDAR YEAR 2024 HEPATITIS B VACCINE Aged Out No longe r eligible based on patient's age to complete this topic HIB VACCINE Aged Out No longer eligi ble based on patient's age to complete this topic HPV VACCINE Aged Out No longer eligi ble based on patient's age to complete this topic MENINGOCOCCAL (Group B) VACCINE Aged Out No longer eligible based on patient's age to complete this topic MENINGOCOCCAL VACCINE Aged Out No dong bandar eligible based on patient's age to complete this topic Care Teams Software Security Architect Relationship Specialty Start Date End Date Desirae Bernstein APRN-JESSICA [address] [place] [address] PCP - General Nurse Practitioner 11/19/24
--- OUTSIDE RECORDS SUMMARY | 2024-12-28 17:39 | XMS_ITS | Encounter Summary ---
Author Organization [facility] Address [address] [place] [address] Care Team Providers Care Paper Bags Sewing Machine Operator Name Role Phone Desirae Bernstein SILVINO Primary Care Provider [phone] Enid Doyle RN Unavailable [phone] Encounter Details Date Type Department Care Team (Late st Contact Info) Description 08/07/2020 Prep for Procedure [facility] [address] [place], [place] [id number] Jeremy Salmeron MD [address] [address] Social History Tobacco Use Types Packs/Day Years Used Date Smoking Tobacco: Never Smokeless Tobacco: Never Alcohol Use Standard Drinks/Week Comments No 0 (1 standard drink = 0.6 oz pur e alcohol) AUDIT-C Answer Date Recorded Frequency of Alcohol Consumption Never 03/22/2019 Average Number of Drinks Not on file 019 Frequency of Binge Drinking Not on file 12/2018 PHQ-2 Answer Date Recorded PHQ-2 Score - If the patient scores above 3, please move on to questions 3-9 0 04/06/2020 Comments No Sex and Gender Information Value Date Recorded Sex Assigned at Female 12/21/2024 12:24 PM WEAVING SUPERVISOR Legal Sex Female 12:55 PM CDT Gender Identity Not on file Sexual Orientation Not on file COVID-19 Exposure Response Date Recorded In the last month, have you been in contact with someone who was confirmed or suspected to have Coronavirus / COVID-19? No / Unsure 08/08/2020 2:02 PM CDT documented as of this encounter Plan of Treatment Upcoming Encounters Date Type Department Care Team (Late st Contact Info) Description 01/05/2025 2:15 PM CDT Office Visit [facility] [address] [place] [address] Desirae Bernstein, CLUB MANAGER [address] [place] [address] Chelsey Cummings, PT [address] [facility] [place] [address] 01/25/2025 2:00 PM CDT [facility] [place] [id number] [place] [address] Desirae Bernstein, CLUB MANAGER [address] [place] [address] documented as of this encounter Results * PRE-SURGICAL/PRE-PROCEDURE CORONAVIRUS (COVID 19) (08/08/2020 2:11 PM CDT) CORONAVIRUS SARS COV 2 PCR (RESP) NOT DETECTED NOT DETECTED 08/09/2020 3:[address] [facility] Comment: A Not Detected (negative) test result for this test means that SARS- CoV-2 RNA was not present in the specimen above the limit of detection. A negative result does not rule out the possibility of COVID-19 and should not be used as the sole basis for treatment or patient management decisions. If COVID-19 is still suspected, based on exposure history together with other clinical findings, re-testing should be considered in consultation with public health authorities. Laboratory test results should always be considered in the context of clinical observations and epidemiological data in making a final diagnosis and patient management decisions. Please review the Fact Sheets and FDA authorized labeling available for health care providers and patients using the following websites: https://www.[employer].com/home/Covid-19/HCP/NAAT/fact-sheet2 https://www.[employer]/home/Covid-19/Patients/NAAT/ fact-sheet2 This test has been authorized by the FDA under an Emergency Use Authorization (EUA) for use by authorized laboratories. Due to the current public health emergency, [facility] is receiving a high volume of samples from a wide variety of swabs and media for COVID-19 testing. In order to serve patients during this public health crisis, samples from appropriate clinical sources are being tested. Negative test results derived from specimens received in non-commercially manufactured viral collection and transport media, or in media and sample collection kits not yet authorized by FDA for COVID-19 testing should be cautiously evaluated and the patient potentially subjected to extra precautions such as additional clinical monitoring, including collection of an additional specimen. Methodology: Nucleic Acid Amplification Test (NAAT) includes RT-PCR or TMA Additional information about COVID-19 can be found at the [facility] website: www.[employer]/Covid19. Test performed at [facility] [address] [place] [address] Director: CLAUDINE ALCANTARA DO,MPH FIRST TEST UNKNOWN 08/08/2020 2:06 PM CDT [facility] EMPLOYED IN HEALTHCARE NO 08/08/2020 2:06 PM CDT [facility] SYMPTOMATIC DEFINED BY CDC UNKNOWN 08/08/2020 2:06 PM CDT [facility] HOSPITALIZATION STATUS NO 08/08/2020 2:06 PM CDT [facility] PATIENT IN ICU NO 08/08/2020 2:06 PM CDT [facility] RESIDENT OF [facility] NO 08/08/2020 2:06 PM CDT [facility] NO 08/08/2020 2:46 PM CDT [facility] PATIENT'S RACE WHITE OR 08/08/2020 2:06 PM CDT [facility] ETHNICITY NONHISPANIC 08/08/2020 2:06 PM CDT [facility] SOURCE (QST) NASOPHARYNGEAL SWAB 08/08/2020 2:06 PM CDT [facility] NASOPHARYNGEAL SWAB / Unknown 08/08/2020 2:11 PM CDT us Jeremy Salmeron MD MICROBIOLOGY - GENERAL ORDERABLE S Final Result [facility] [address] [place] [address], [facility] [address] [place] [address], documented in this encounter Visit Diagnoses Diagnosis Preop testing- Primary Preoperative examination, unspecified documented in this encounter Additional Health Concerns Infection Onset Date Last Indicated Resolved Time COVID-19 Rule Out 08/08/2020 08/08/2020 08/09/2020 3:17 PM CDT Assessment Noted Time PHQ-9 Depression Total Score: 2 04/06/20 11:37 AM CDT documented as of this encounter Care Teams Paper Bags Sewing Machine Operator Relationship Specialty Start Date End Date Desirae Bernstein FNP [address] [place] [address] PCP - General Nurse Practitioner Family 03/22/19 Enid Doyle, RN [address] [address] Wire Coiler (Ambulatory) REGISTERED NURSE 01/12/21 02/19/23 documented as of this encounter
--- OUTSIDE RECORDS SUMMARY | 2024-12-28 17:39 | XMS_ITS ---
Author Organization [facility] Address [address] [place] [address] Care Team Providers Care Power Shovel Operator Helper Name Role Phone zKarlie, zzzzProvider Unavailable Unav ailable REASON FOR VISIT EMR-Brett Encounters Encounter Location Date Provider Diagnosis [facility] [address] [facility] [address] [place] [address] 08/09/2023 zzzzProvider zzzzMigration Plan Of Treatment No Information Progress Notes * Erica SMITHarnoldoeDOB: (74 yo F)Acc No.[id number]:08/09/2023 Patient: Erica MARQUES :1950 A ge:73 Y S ex:Female Address:[address] [place] [address] [place], [address] Subjective: * Chief Complaints: * E MR-Brett * Medical History: * Surgical History: * Hospitalization/Major Diagno stic Procedure: * Medications: Objective: * Vitals: * Physical Examination: Assessment: Plan: * Treatment: * Procedure Codes: * * Date:
--- OUTSIDE RECORDS SUMMARY | 2024-12-28 17:39 | XMS_ITS ---
Author Organization [facility] Care Team Providers Care Estate Planning Director Name Role Phone Jane Marley Unavailable Unavailable Allergies and adverse reactions Code CodeSystem Substance Reaction Severity StartDate Concern Status 8785 RXNORM Propoxyphene Unknown 03/23/2021 active 7052 RXNORM Morphine Unknown 03/23/2021 active 5489 RXNORM Hydrocodone Unknown 03/23/2021 active 2670 RXNORM Codeine Unknown 03/23/2021 active 2582 RXNORM Clindamycin Unknown 03/23/2021 active Care Team Name Role Address Phone Organization Dates Jane Marley PCP [address] [address] [facility] [place] [place], [address], [place] (Office): : [facility] 03/23/2021 - 03/24/2021 Immunizations Immunization Status Vaccine Details Vaccine Code CodeSystem Gigi e Notes Pneumovax (PCV 13)(81564) completed pneumococcal conjugate vaccine, 13 valent 133 CVX created date: 03/23/2021 administere d date: 07/01/2019 per pt Problems Problem # Description Date of onset Resolved Date Code CodeSystem Concern Status 1 ANXIETY DISORDER, UNSPECIFIED [address] active 2 BIPOLAR DISORDER, UNSPECIFIED [address] active 3 FATTY (CHANGE OF) LIVER, NOT ELSEWHERE CLASSIFIED [address] active 4 GASTRO-ESOPHAGEAL REFLUX DISEASE WITH ESOPHAGITIS, WITHOUT BLEEDING [address] active 5 HYPERLIPIDEMIA, UNSPECIFIED [address] active 6 MAJOR DEPRESSIVE DISORDER, RECURRENT, UNSPECIFIED [address] active 7 MALIGNANT CARCINOID TUMOR OF THE BRONCHUS AND LUNG [address] active 8 MALIGNANT POORLY DIFFERENTIATED NEUROENDOCRINE TUMORS [address] active 9 MOTION SICKNESS, SUBSEQUENT ENCOUNTER [address] active 10 PRESENCE OF RIGHT ARTIFICIAL SHOULDER JOINT [address] active 11 UNSPECIFIED FRACTURE OF UPPER END OF RIGHT HUMERUS, SUBSEQUENT ENCOUNTER FOR FRACTURE WITH ROUTINE HEALING [address] active Reason for Referral No Reasons for Referral Entered Social History Social History Observation Description Start Date End Date Code Code System Current Smoking Status Tobacco smoking consumption unknown 530363412 SNOMED CT Sex Assigned At Female 1950 [address] [facility]
--- OUTSIDE RECORDS SUMMARY | 2024-12-28 17:39 | XMS_ITS | Encounter Summary ---
Author Organization [facility] Address [address] [place] [address] Care Team Providers Care Insurance Office Supervisor Name Role Phone Desirae Bernstein NP Primary Care Provider + [phone] Alex Ge MD Unavailable [phone] Garima Duenas Primary Care Provider + Desirae Bernstein NP Unavailable [phone] Unknown, Notinfile Primary Care Provider Unavail able Yen Dahl RN Unavailable UnavailBlanca Aponte Unavailable Unavailable Encounter Details Date Type Department Care Team (Late st Contact Info) Description 07/20/2021 Orders Only [facility] Health Information Management [address] [place] [address] Scanning, Provider Social History Tobacco Use Types Packs/Day Years Used Date Smoking Tobacco: Never Smokeless Tobacco: Never Alcohol Use Standard Drinks/Week Comments Yes 0 (1 standard drink = 0.6 oz pur e alcohol) a few drinks a year Social Connection and Isolat ion Panel [NHANES] Answer Date Recorded In a typical week, how many times do you talk on the phone with family, friends, or neighbors? More than three times a week 03/19/2021 How often do you get togethe r with friends or relatives? More than three times a week 03/19/2021 Attends Rastafari Services Not on file 03/19 Active Member of Clubs or Organizations Not on f ile 03/19/2021 Attends Club or Organization Meetings Not on suman e 03/19/2021 Are you , , di vorced, , never , or living with a partner? 03/19/2021 AUDIT-C Answer Date Recorded Q1: How often do you have a drink containing alc ohol? Never 03/16/2021 Average Number of Drinks Not on file 021 Frequency of Binge Drinking Not on file 02/18 Overall Financial Resource Strain (CARDIA) Answe r Date Recorded How hard is it for you to pa y for the very basics like food, housing, medical care, and heating? Not hard at all 03/19/2021 Hunger Vital Sign Answer Date Recorded Within the past 12 months, y ou worried that your food would run out before you got the money to buy more. Never true 03/19/20 21 Within the past 12 months, t he food you bought just didn't last and you didn't have money to get more. Never true 03/19/2021 PRAPARE - Transportation Answer Date Re corded In the past 12 months, has l ack of transportation kept you from medical appointments or from getting medications? No 02/19 In the past 12 months, has l ack of transportation kept you from meetings, work, or from getting things needed for daily living? No 03/19/2021 Housing Stability Vital Sign Answer Gigi e Recorded In the last 12 months, was t here a time when you were not able to pay the mortgage or rent on time? No 03/19/2021 Number of Places Lived in the Last Year Not on f ile 03/19/2021 In the last 12 months, was t here a time when you did not have a steady place to sleep or slept in a [place] [facility] care facility (including now)? No 03/19/2021 Comments No Sex and Gender Information Value Date Recorded Sex Assigned at Not on file Legal Sex Female 2:32 AM PATIENT ASSESSMENT COORDINATOR Gender Identity Not on file Sexual Orientation Not on file documented as of this encounter Plan of Treatment Scheduled Procedures Name Priority Associated Diagnoses Date/Ti me REPAIR HIATAL HERNIA - TRANSTHORACIC APPROACH Hiatal hernia documented as of this encounter Procedures Procedure Name Priority Date/Time Associated Diagnosis Comments SCAN - OTHER ORDERS 07/20/2021 documented in this encounter Results * SCAN - OTHER ORDERS (07/20/2021) us Provider Scanning Final Result documented in this encounter Visit Diagnoses Not on filedocumented in this encounter Care Teams Insurance Office Supervisor Relationship Specialty Start Date End Date Desirae Bernstein NP [address] [place] [id number] PCP - General Nurse Practitioner 08/21/20 08/08/22 Garima Duenas PA [address] [place] [address] PCP - General Nurse Practitioner 08/09/22 05/29/23 Unknown, Notinfile PCP - General 05/30/23 Alex Ge MD [address] [place] [address] Referring Physician Thoracic Surgery 01/13/21 01/07/24 Desirae Bernstein NP [address] [place] [address] Nurse Practitioner Nurse Practitioner 02/25/23 Yen Dahl, RN Registered Nurse Pulmonary Disease 07/30/23 Blanca Monique RMA Surgical Prehabilitation and Readiness (SPAR) Coordinator 01/02/24 01/18/24 documented as of this encounter
--- OUTSIDE RECORDS SUMMARY | 2024-12-28 17:39 | XMS_ITS | Clinical Summary ---
Author Organization [facility] Virtual Care Address [address] [place] [id number] Phone Care Team Providers Care Nutrition Technician Name Role Phone Desirae Bernstein NP Unavailable [phone] Unknown, Notinfile Primary Care Provider Unavail able Yen Dahl RN Unavailable Unavailabl e Allergies Active Allergy Reactions Criticality Noted Date Comments Amoxicillin Unknown 06/07/2021 Clindamycin Rash Medium 03/22/2019 Codeine Anxiety,Rash Medium 07/01/2019 Hydrocodone Other (See comments) Low 01/09/2021 Patient does not remember Morphine Anaphylaxis,Swelling ,Jorge L h High 02/20/2018 Propoxyphene Dizziness Low 04/06/2020 Medications cholecalciferol (VITAMIN D-3) 2000 unit capsuleIndicati ons:Vitamin D Deficiency Take 1 capsule (2,000 Units total) by mouth every morning qd 3 Active clonazePAM (KlonoPIN) 0.5 mg tabletIndicatio ns:Panic Disorder Take 2 tablets (1 mg total) by mouth nightly 0 Active cyanocobalamin (Vitamin B-12) 1,000 mcg/mL injectionIndica tions:Vitamin B12 Deficiency Inject 1 mL (1,000 mcg total) into the muscle as instructed every 2 (two) weeks 0 Active calcium carbonate-vitam in D3 1,250mg (500mg elemental) - 5 mcg (200 units) per tablet Take 1 tablet by mouth 2 (two) times a day Active traZODone (DESYREL) 100 mg tablet Take 1 tablet (100 mg total) by mouth nightly 3 Active venlafaxine XR (EFFEXOR-XR) 150 mg 24 hr capsule Take 1 capsule (150 mg total) by mouth 2 (two) times a day 0 Active acetaminophen 500 mg capsuleIndicati ons:Pain Take 2 capsules (1,000 mg total) by mouth every 6 (six) hours 30 tablet 1 Active multivitamin,tx -spqn-Ab-YB-min 27-0.4 mg tablet Take 1 tablet by mouth daily 4 Active ibuprofen (ADVIL,MOTRIN) 400 mg tablet Active Active Problems Patient Care Coordination No te [...] (11/18/2022): Added automatically from request for surgery [id number] Encounter for colonoscopy due to history of colo charlotte polyp 08/15/2022 Overview (08/15/2022): Added automatically from request for surgery [id number] Aseptic necrosis of head or neck of [...] (01/05/2021): Added automatically from request for surgery [id number] Malignant carcinoid tumor of lung 12/28/2020 Assessment [...] (03/14/2022): Added automatically from request for surgery [id number] Black stools 07/17/2020 Elevated fasting blood sugar [...] 01/03/2013 Stage 3a chronic kidney disease 01/03/2013 Resolved Problems Problem Noted Date Diagnosed Date [...] 1. Per notes, not adjuvant therapy needed. Surgical History Surgery Date Site/Laterality Comments LAPAROTOMY ~1999 small bowel resection s/p fall at home-not found for several hrs LAPAROSCOPIC CHOLECYSTECTOMY 10/20/2007 - 10/19/2008 TOTAL HIP ARTHROPLASTY Right FRACTURE SURGERY BOWEL RESECTION LUNG REMOVAL, PARTIAL TOTAL SHOULDER ARTHROPLASTY Right COLONOSCOPY UPPER GASTROINTESTINAL ENDOSCOPY Medical History Medical History Date Comments Gastroesophageal reflux disease Hx Other Medical B/L leg fractur es; Comments: RUTHIE 08/19/2014 - Dyslipidemia Osteopenia Anxiety and depression Bipolar disorder (HCC) Motion sickness Malignant carcinoid tumor of lung (HCC) 12/29/19 21 Osteoarthritis of hip 01/23/2021 Anemia Colon polyp Hiatal hernia Family History Medical History Relation Name Comments Other Father Unknown; Cause of : Unknown Colon polyps Mother Heart attack Mother Myocardial infa rction; Ovarian cancer Sister Cancer, ovari an; Anesthesia problems Neg Hx Relation Name Status Comments Father Mother Sister Social History Tobacco Use Types Packs/Day Years Used Date Smoking Tobacco: Never Smokeless Tobacco: Never Tobacco Cessation:Counseling Given: Not Answered Alcohol Use Standard Drinks/Week Comments Yes 0 [...] than three times a week 03/19/2021 Attends Mandaen Services Not on file 03/19 Active Member of Clubs or Organizations Not on f ile 03/19/2021 Attends Club or Organization Meetings Not on suman e 03/19/2021 Are you , , di vorced, , never , or living with a partner? 03/19/2021 AUDIT-C Answer Date Recorded Q1: How often do you have a drink containing alcohol? Never 12/12/2022 Q2: How many drinks containi ng alcohol do you have on a typical day when you are drinking? Patient does not drink Q3: How often do you have si x or more drinks on one occasion? Never 12/12/2022 Overall Financial Resource Strain (CARDIA) Answe r [...] place to sleep or slept in a prison (including now)? No 03/19/2021 Personal Safety Answer Date Recorded Have you ever been in or are you currently in a harmful physical or emotional relationship or is someone making you feel afraid or unsafe? Denies 02/18/2024 Comments No Sex and Gender Information Value Date Recorded Sex Assigned at Not on file Legal Sex Female 2:32 AM COOK LARDER Gender Identity Not on file Sexual Orientation Not on file Obstetrics History Last Filed Vital Signs Vital Sign Reading Time Taken Comments Blood Pressure 138/82 07/02/2024 10:14 AM CDT Pulse 71 07/02/2024 10:14 AM CDT Temperature 37.2 C (98.9 F) 07/02/2024 10:14 AM CDT Respiratory Rate 18 07/02/2024 10:14 AM CDT Oxygen Saturation 99% 07/02/2024 10:14 AM CDT Inhaled Oxygen Concentration - - Weight 63 kg (139 lb) 07/02/2024 10:14 AM CDT Height 160 cm (5' 3 ) 07/02/2024 10:14 AM CDT Body Mass Index 24.62 07/02/2024 10:14 AM CDT Plan of Treatment Scheduled Procedures Name Priority Associated Diagnoses Date/Ti me REPAIR HIATAL HERNIA - TRANSTHORACIC APPROACH Hiatal hernia Health Maintenance Due Date Last Done Comments Depression Screening 1950 Hepatitis C Screening 1950 Zoster Vaccine (2 of 3) 12/25/2012 10/30/2012 Well Visit 65+ 2013 Osteoporosis Screening-Bone Density Scan 12/23/2021 12/24/2019 Fall Risk Assessment 12/12/2023 12/12/2022 Covid-19 Vaccine (4 - 2023-2 5 season) 2024 08/14/2021, 01/04/2021, 12/07/2020 Influenza Vaccine (#1) 2024 , 07/20/2021, 09/13/2019, Additional history exists DTaP/Tdap/Td Vaccine (3 - Td or Tdap) 07/14/2030 07/14/2020, 05/20/2017 Pneumococcal vaccine 65+ Completed 020, 07/01/2019, 09/05/2018, Additional history exists Colon Cancer Screening-Colonoscopy Discontinued 12/12/2022, 08/23/2022, 01/31/2021, Additional history exists Breast Cancer Screening-Mammogram Discontinued 023 Medical Devices Implanted Type Area Well Servicing Rig Operator Device Identifier Shelf Expiration Date Model / Serial / Lot [employer] [id number] Latitude 8-15mm Restrictor Elbow Restrictor Cement - [id number] - [id number] Implanted:Qty: 1 on 03/16/2021 by Terell Hendrickson MD at [facility] Right: Humerus [employer] [id number] 06/01/2024 [id number] / [id number] / [employer] [id number] 36mm Reverse Humerus 7d +0mm Offset Standard Liner Shoulder - S.0 - [id number] Implanted:Qty: 1 on 03/16/2021 by Terell Hendrickson MD at [facility] [employer] [id number] 11/22/2028 [id number] / .0 / [id number] [employer] 6191-1-010 Simplex P Radiopaque Full Dose Cement Bone Sterile - [id number] Implanted:Qty: 1 on 03/16/2021 by Terell Hendrickson MD at [facility] Right: Humerus [employer] [id number] 07/19/2022 6191-1-010 / / [id number] [employer] 6191-1-010 Simplex P Radiopaque Full Dose Cement Bone Sterile - [id number] Implanted:Qty: 1 on 03/16/2021 by Terell Hendrickson MD at [facility] Right: Humerus [employer] [id number] 07/19/2022 6191-1-010 / / [id number] [employer] [id number] Base Plate 26mm Tm Reverse 20m - [id number] Implanted:Qty: 1 on 03/16/2021 by Terell Hendrickson MD at [facility] Right: Humerus [employer] [id number] 05/10/2030 [id number] / / [id number] [employer] [id number] Component Glenoid Trabecular Metal Reverse Plus +0mm Offset Od36mm Shoulder Lateral Glenosphere Sterile Latex Free - [id number] Implanted:Qty: 1 on 03/16/2021 by Terell Hendrickson MD at [facility] Right: Shoulder [employer] [id number] 02/05/2031 [id number] / / [id number] [employer] 01.80207.036 Ncb Anatomical Shoulder 4.5mm 36mm Inverse Reverse Lock Self Tap - [id number] Implanted:Qty: 1 on 03/16/2021 by Terell Hendrickson MD at [facility] Right: Shoulder [employer] [id number] 11/19/2025 01.03895.036 / / [id number] [employer] 01.77458.030 Ncb Anatomical Shoulder 4.5mm 30mm Inverse Reverse Lock Self Tap - [id number] Implanted:Qty: 1 on 03/16/2021 by Terell Hendrickson MD at [facility] Right: Shoulder [employer] [id number] 11/19/2025 01.45215.030 / / [id number] [employer] [id number] 8mm 130mm Shoulder Stem Humeral Trabecular Metal Sterile Reverse - S.0 - [id number] Implanted:Qty: 1 on 03/16/2021 by Terell Hendrickson MD at [facility] [employer] [id number] 11/01/2030 [id number] / .0 / [id number] Explanted Type Area Well Servicing Rig Operator Device Identifier Shelf Expiration Date Model / Serial / Lot [employer] [id number] Raghav 3/32in 9in 2 Trocar Pin Fixation Nonsterile - [id number] Explanted:Qty: 1 on 03/16/2021 at [facility] Right: Humerus [employer] [id number] / / Procedures Procedure Name Priority Date/Time Associated Diagnosis Comments COLONOSCOPY 12/12/2022 2:20 PM COOK LARDER from Last 3 Months or Most Recently Relevant to Health Maintenance Results * COLONOSCOPY (12/12/2022 2:20 PM COOK LARDER) Anatomical Region Laterality Modality Other Narrative Procedure Note Satish Monroe MD - 12/12/2022 2:20 PM [facility] ENDOSCOPY LAB Patient Name: Dayne Smith Procedure Date: 12/12/2022 2:20 PM Admit Type: Outpatient Room: [facility] Date of : 1950 Instrument Name: [id number] Gender: Female Note Status: Finalized Procedure: Colonoscopy Indications: High risk colon cancer surveillance: Personalhistory of colonic polyps, Last colonoscopy: August 2022 with poor bowel preparation. Providers: Satish Monroe M.D. Referring MD: Rhys Pearson Medicines: Monitored Anesthesia Care Complications: No immediate complications. Estimated Blood Loss: Estimated blood loss: none. Procedure: Pre-Anesthesia Assessment: - The risks and benefits of the procedure and the sedation options and risks were discussed with the patient. All questions were answered and informed consent was obtained. - Immediately prior to administration ofmedications, the patient was re-assessed for adequacy to receive sedatives. The benefits, risks and alternatives of theprocedure and sedation were discussed and informed consentwas obtained. All questions were answered. Please referto the signed informed consent document in the medical record. The scope was passed under direct vision.The Colonoscope was introduced through the anus and advanced to the the cecum, identified byappendiceal orifice and ileocecal valve. The colonoscopy was performed without difficulty. The patient tolerated the procedure well. The bowel preparation used was GoLYTELY via extended prep with split doseinstruction. Findings: The perianal and digital rectal examinations were normal. A large amount of solid stool was found in the recto-sigmoid colon, precluding visualization. Impression: - Stool in the recto-sigmoid colon. - Given the poor bowel preparation, the procedurewas aborted. Recommendation: - Return to referring physician as previously scheduled. - Given difficulty with bowel preparation (patientdid a 2 day bowel preparation) and age, patient has decided to forego further surveillance exams. Attending Participation: I personally performed the entire procedure. Electronically signed by Satish Monroe M.D. Satish Monroe M.D. 12/12/2022 3:06:27 PM This document was signed electronically. Number of Addenda: 0 Note Initiated On: 12/12/2022 2:20 PM Scope In: Scope Out: us Satish Monroe MD ENDOSCOPY PROCEDURES Final Result from Last 3 Months or Most Recently Relevant to Health Maintenance [place] [address] [facility] REF MEDICARE SOLUTIONS MEDICARE SOLUTIONS Advance Directives For more information, please contact: [phone] Documents on File Type Date Recorded Patient Lens Engraver Expl anation ADVANCE DIRECTIVE 01/29/2021 2:59 PM Power of Housekeeper Nanny-Medical ADVANCE DIRECTIVE 01/15/2021 2:23 PM DAPHNE NESS * Full Code (Latest Code Status on File) Date Activated Date Inactivated Comments 12/12/2022 1:24 PM 12/12/2022 7:49 PM * Full Code Date Activated Date Inactivated Comments 08/23/2022 12:02 PM 08/23/2022 5:54 PM * Full Code Date Activated Date Inactivated Comments 03/15/2021 12:54 AM 03/23/2021 7:15 PM * Full Code Date Activated Date Inactivated Comments 01/31/2021 1:04 PM 01/31/2021 7:07 PM * Full Code Date Activated Date Inactivated Comments 01/11/2021 6:47 PM 01/13/2021 4:51 PM Care Teams Nutrition Technician Relationship Specialty Start Date End Date Unknown, Notinfile PCP - General 05/30/23 Desirae Bernstein NP Nurse Practitioner Nurse Practitioner 02/25/23 Yen Dahl, RN Registered Nurse Pulmonary Disease 07/30/23
--- OUTSIDE RECORDS SUMMARY | 2024-12-28 17:39 | XMS_ITS | Patient Health Summary ---
Author Organization [facility] Address [address] [place] [address] Care Team Providers Care Industrial Gas Fitter Helper Name Role Phone Desirae Bernstein Primary Care Provider [phone] Note from [facility],non-owned Affiliates and Associated Physician Practices is amultiple site organization consisting of ambulatory clinics and hospital sitesin [place], [place], [place] and [place]. This disclosure is being madepursuant to the Care Everywhere program and may not contain all information available regarding this patient. Last updated 18.[facility] Social History Tobacco Use Types Packs/Day Years Used Date Smoking Tobacco: Never Assessed Sex and Gender Information Value Date Recorded Sex Assigned at Not on file Gender Identity Not on file Sexual Orientation Not on file Care Teams Industrial Gas Fitter Helper Relationship Specialty Start Date End Date Desirae Bernstein APRN-CNP [address] [place] [id number] PCP - General Nurse Practitioner 11/19/24
--- OUTSIDE RECORDS SUMMARY | 2024-12-28 17:39 | XMS_ITS | Clinical Summary ---
Author Organization [facility] Address [address] [place] [address] Care Team Providers Care Bpm Architect Name Role Phone Desirae Bernstein Primary Care Provider [phone] Allergies Active Allergy Reactions Criticality Noted Date Comments Clindamycin Rash Low 03/22/2019 Codeine Rash,Anxiety Low 07/01/2019 Hydrocodone Other (see comment) Low 01/09/2021 Patient does not remember Hydrocodone-Acetaminoph en Other (see comment) 04/06/2020 Reaction: REACTION UNKNOWN, Morphine Swelling,Anaphylaxis High 02/20/2018 Propoxyphene Other (see comment) 04/06/2020 Reaction: OTHER REACTION, Medications * This document contains information received from the source organization and may not represent a complete record from that organization. clonazePAM 0.5 MG tablet Take 2 tablets (1 mg total) by mouth nightly. 3 Active lamotrigine 100 MG tabletIndication s:01/13 per [facility] dc instructions Take 0.5 tablets (50 mg total) by mouth daily. Indications: 01/13 per [facility] dc instructions 9 Active Multiple Vitamins-Mineral s (CENTRUM) Tab Take 1 tablet by mouth daily. 4 Active risperiDONE 0.5 MG tablet Take 1 tablet (0.5 mg total) by mouth nightly. 3 Active trazodone 100 MG tablet Take 1 tablet (100 mg total) by mouth nightly at bedtime. 3 Active aspirin-acetamin ophen-caffeine (EXCEDRIN MIGRAINE) 250-250-65 MG tablet Take 1 tablet by mouth every 6 (six) hours as needed for Pain. Active calcium carbonate-vitami n D 500-200 MG-UNIT Tab Take 1 tablet by mouth 2 (two) times daily. Active PARoxetine 40 MG tablet Take 1 tablet (40 mg total) by mouth daily. 0 Active venlafaxine XR 150 MG 24 hr capsule Take 1 capsule (150 mg total) by mouth daily. Pt takes 1 tablet of the 150mg. 0 Active acetaminophen 500 MG tablet Take 2 tablets (1,000 mg total) by mouth every 6 (six) hours as needed for Pain. Not to exceed 3gm/24h Active ibuprofen 400 MG tablet ibuprofen 400 mg tablet Active omeprazole (PRILOSEC) 40 MG capsule Take 1 capsule (40 mg total) by mouth 2 (two) times daily. 2 Active Active Problems Problem Noted Date Diagnosed Date Closed fracture of one rib o f right side with routine healing, subsequent encounter 12/10/2023 Physical deconditioning 12/10/2023 Falls frequently 12/10/2023 Thyroid nodule 12/10/2023 Recent urinary tract infection 05/28/2023 Urine findings abnormal 05/28/2023 Esophagitis 11/18/2022 Overview (12/05/2022): Added automatically from request for surgery [id number] Urinary retention 04/19/2022 B12 deficiency 07/20/2021 Malignant carcinoid tumor of the bronchus and lung ([facility]) 03/23/2021 Presence of right artificial shoulder joint 01/2021 Major depressive disorder, recurrent, unspecifie d 03/23/2021 Hyperlipidemia, unspecified 03/23/2021 Gastro-esophageal reflux dis ease with esophagitis, without bleeding 03/23/2021 Fatty (change of) liver, not elsewhere classifie d 03/23/2021 Anxiety disorder, unspecified 03/23/2021 Unspecified fracture of uppe r end of right humerus, subsequent encounter for fracture with routine healing 03/23/2021 Motion sickness 03/23/2021 Closed fracture of right proximal humerus 2020 Overview (07/20/2021): Last Assessment & Plan: -Comminuted 3 part proximal humerus fracture with [...] of hip 01/23/2021 Pain in limb 01/23/2021 Malignant neoplasm of hilus of lung ([facility]) 01/05/2021 Overview (01/23/2021): Added automatically from request for surgery [id number] Malignant carcinoid tumor of lung ([facility]) 12/28/2020 Overview (01/23/2021): Last Assessment & Plan: 01/11 VATS YRIS segementectomy - plan to remove L CT: follow up post pull chest x-ray - encourage IS, C&DB -ADAT - bowel regimen - DVT prophylaxis - ambulate w/ assistance - Pain mgnt: acute pain team collaborating in the post op pain mgnt: plan to remove epidural today. Add oral pain medication (avoid narcotics per pt request) Neuroendocrine tumor 12/28/2020 Lung nodule 11/01/2020 Colonic mass 08/30/2020 Generalized abdominal pain 08/07/2020 Overview (08/07/2020): Added automatically from request for surgery [id number] Black stools 07/17/2020 History of partial colectomy 07/17/2020 Right hip pain 07/17/2020 Elevated fasting blood sugar 07/17/2020 Fall, subsequent encounter 07/17/2020 Vitamin D deficiency 04/06/2020 Dysuria 04/06/2020 Nevus 04/06/2020 Acne, unspecified acne type 04/06/2020 External hemorrhoid 04/06/2020 Overweight with body mass in dex (BMI) of 27 to 27.9 in adult 04/06/2020 Cough 07/25/2019 Fever, unspecified fever cause 07/25/2019 Dizziness 07/25/2019 Blood in stool 07/25/2019 Weakness 07/25/2019 Near syncope 03/24/2019 Falling episodes 03/24/2019 Memory loss 03/24/2019 Osteopenia of multiple sites 03/24/2019 H/O colectomy 03/24/2019 History of alcohol abuse 03/24/2019 Abnormal electrocardiography 08/19/2014 Overview (04/06/2020): Electrocardiogram abnormal Anemia 01/03/2013 Bipolar II disorder ([facility]) 01/03/2013 Stage 3a chronic kidney disease 01/03/2013 Gastroesophageal reflux dise ase, esophagitis presence not specified 01/03/2013 Resolved Problems Problem Noted Date Diagnosed Date Resolved Date Aseptic necrosis of head or neck of femur ([facility]) 01/23/2021 07/20/2021 Moderate malnutrition ([facility]) 01/12/2021 07/20/2021 Encounter for screening colonoscopy 07/17/2020 07/24/2020 Encounter for screening for osteoporosis 03/24/2019 06/30/2020 Encounters * This document contains information received from the source organization and may not represent a complete record from that organization. Date Type Department Care Team Description 10/08/2024 Scan HEALTH INFO SRVCS Scanned, Doc Med Group 10/06/2024 3:15 PM HOSPITALITY INTERN Office Visit [facility] [address] [place] [address] Desirae Bernstein, Chelsey Avendano B, PT Balance Problem 10/06/2024 Travel from Last 3 Months Immunizations Name Administration Dates Next Due Fluad influenza vaccine, Quadrivalent (aIIV4), Inactivated, adjuvanted, preservative free, 0.5 mL,IM use 09/05/2018 Fluzone High Dose - >Age 65 (Prefilled Syringe) 08/08/2022,07/20/2021,09/13/2019,09/0208/08/2022 Fluzone Intradermal (IIV3) 10/30/2012 Hepatitis A (Generic) 05/17/2008 Hepatitis A (Havrix 1440 [address]U) 05/17/2008 Hepatitis B (Generic: Adult) 07/18/2008,05/17/20 08 Influenza (Generic) 09/05/2018,10/30/2012 Influenza Adult (Generic) 08/08/2022,07/20/2021, 09/02/2018 MMR (MMRII) 05/20/2017 MODERNA COVID-19 (12+) MRNA, LNP-S, PF, 100 MCG/ 0.5 ML DOSE 08/14/2021,01/04/2021,12/07/2020 Measles, Mumps & Rubella Vac Sc 05/20/2017 PFIZER COVID-19 (RUIZ CAP), MRNA, LNP-S, PF, 30 MCG/0.3 ML LOBO-SUCROSE, IM 04/19/2022 PFIZER COVID-19 BIVALENT (12 +) mRNA, LNP-S, PF, 30 MCG/0.3 ML DOSE 08/08/2022 Pneumococcal (Pneumovax 23) 04/06/2020 Pneumococcal (Prevnar 13) 07/01/2019,09/05/2018, 09/02/2018 Tdap (Boostrix) 07/14/2020 Tdap (Generic) 05/20/2017 Zoster (Zostavax) [address]1646 Unt/0.65Ml 10/30/2012 Family History Medical History Relation Comments Depression Father Diabetes Father Cancer Sister ovarian Relation Status Comments Father Sister Social History Tobacco Use Types Packs/Day Years Used Date Smoking Tobacco: Never Smokeless Tobacco: Never Tobacco Cessation:Counseling Given: Not Answered Alcohol Use Standard Drinks/Week Comments Not Currently 0 (1 standard drink = 0.6 oz pur e alcohol) AUDIT-C Answer Date Recorded Frequency of Alcohol Consumption Never 03/22/2019 Average Number of Drinks Not on file 019 Frequency of Binge Drinking Not on file 12/2018 PHQ-2 Answer Date Recorded Patient Health Questionnaire-2 Score 4 05/21/2024 Comments No Sex and Gender Information Value Date Recorded Sex Assigned at Female 12/21/2024 12:24 PM HOSPITALITY INTERN Legal Sex Female 12:55 PM CDT Gender Identity Not on file Sexual Orientation Not on file Last Filed Vital Signs Vital Sign Reading Time Taken Comments Blood Pressure 97/61 05/21/2024 11:26 AM CDT Pulse 84 05/21/2024 11:26 AM CDT Temperature 37 C (98.6 F) 05/21/2024 11:26 AM CDT Respiratory Rate 16 05/21/2024 11:26 AM CDT Oxygen Saturation 96% 05/21/2024 11:26 AM CDT Inhaled Oxygen Concentration - - Weight 64.4 kg (142 lb) 05/21/2024 11:26 AM CDT Height 160 cm (5' 3 ) 05/21/2024 11:26 AM CDT Body Mass Index 25.15 05/21/2024 11:26 AM CDT Plan of Treatment Upcoming Encounters Date Type Department Care Team (Late st Contact Info) Description 01/05/2025 2:15 PM CDT Office Visit [facility] [address] [place] [address] Desirae Bernstein, [address] [address] Chelsey Cummings, PT [address] [place] [address] 01/25/2025 2:00 PM CDT Office Visit [facility] - [address] [phone] Desirae Bernstein, [address] [address] Health Maintenance Due Date Last Done Comments Hepatitis C 1968 Annual Medicare Wellness Visit 2013 COVID-19 Vaccine ( season) 2024 07/14/2024, 08/08/2022, 04/19/2022, Additional history exists PHQ-2 (Physician [place]) 10/20/2024 05/21/2024 Zoster Vaccines (2 of 3) 05/21/2025 10/30/2012 Pos tponed from 12/25/2012 (Going to Outside Clinic) DTaP, Tdap and Td Vaccines (3 - Td or Tdap) 07/14/2030 07/14/2020, 05/20/2017 Dexa Scan (General) Completed 12/24/2019 Pneumococcal Vaccine: 65+ Years Completed 04/06/2020, 07/01/2019, 09/05/2018, Additional history exists Colorectal Cancer Screening Colonoscopy (10 Years) Discontinued 12/12/2022, 08/23/2022, 09/29/2020, Additional history exists Influenza Adult Completed 07/14/2024, 07/21, 08/08/2022, Additional history exists RSV Immunization or 60+ Years Completed 07/14/2024 Meningococcal B Vaccine Aged Out No l onger eligible based on patient's age to complete this topic Meningococcal Vaccine Aged Out No dong bandar eligible based on patient's age to complete this topic RSV Immunizations Under 20 Months Aged Out No longer eligible based on patient's age to complete this topic Procedures Procedure Name Priority Date/Time Associated Diagnosis Comments COLONOSCOPY GENERIC (SCAN ORDER) 12/12/2022 BONE DENSITY/DEXA Routine 12/24/2019 Osteopenia of multiple sites from Last 3 Months or Most Recently Relevant to Health Maintenance Results * COLONOSCOPY GENERIC (12/12/2022) 12/12/2022 us [facility] Scanned SCANNING Final Resu lt * BONE DENSITY/DEXA (12/24/2019) Anatomical Region Laterality Modality Bone Bone Density Desirae Bernstein SUPERINTENDENT HORTICULTURE DEXA Edited Result - Final from Last 3 Months or Most Recently Relevant to Health Maintenance Insurance [facility] Care Teams Bpm Architect Relationship Specialty Start Date End Date Desirae Bernstein FNP [address] [place] [id number] PCP - General Nurse Practitioner Family 03/22/19
--- OUTSIDE RECORDS SUMMARY | 2024-12-28 17:39 | XMS_ITS | Referral Summary ---
Author Organization [facility] Address [address] [place] [address] Care Team Providers Care Fur Clipper Name Role Phone Desirae Bernstein Primary Care Provider [phone] Source Comments [facility],non-owned Affiliates and Associated Physician Practices is [facility] organization consisting of ambulatory clinics and hospital sitesin [place], [place], [place]. This disclosure is being madepursuant to the Care Everywhere program and may not contain all information available regarding this patient. Last updated 18.[facility] Social History Tobacco Use Types Packs/Day Years Used Date Smoking Tobacco: Never Assessed Sex and Gender Information Value Date Recorded Sex Assigned at Not on file Gender Identity Not on file Sexual Orientation Not on file Plan of Treatment Not on file Care Teams Fur Clipper Relationship Specialty Start Date End Date Desirae Bernstein APRN-CNP [address] [place] [address] PCP - General Nurse Practitioner 11/19/24
--- OUTSIDE RECORDS SUMMARY | 2024-12-28 17:39 | XMS_ITS | Referral Summary ---
Author Organization [facility] Address [address] [place] [phone] Phone Care Team Providers Care Securities Counselor Name Role Phone Desirae Bernstein NP Unavailable [phone] Unknown, Notinfile Primary Care Provider Unavail able [...] (six) hours 30 tablet 1 Active multivitamin,tx -yicg-Sa-AB-min 27-0.4 mg tablet Take 1 tablet by [...] (11/18/2022): Added automatically from request for surgery [id number] Encounter for colonoscopy due to history of colo [place] polyp 08/15/2022 Overview (08/15/2022): Added automatically from request for surgery [id number] Aseptic necrosis of head or neck of [...] (01/05/2021): Added automatically from request for surgery [id number] Malignant carcinoid tumor of lung 12/28/2020 Assessment [...] (03/14/2022): Added automatically from request for surgery [id number] Black stools 07/17/2020 Elevated fasting blood sugar [...] 1. Per notes, not adjuvant therapy needed. Social History Tobacco Use Types Packs/Day Years [...] than three times a week 03/19/2021 Attends [employer] Services Not on file 03/19 Active Member [...] place to sleep or slept in a longterm (including now)? No 03/19/2021 Personal Safety Answer Date Recorded Have you ever been in or are you currently in a harmful physical or emotional relationship or is someone making you feel afraid or unsafe? Denies 02/18/2024 Comments No Sex and Gender Information Value Date Recorded Sex Assigned at Not on file Legal Sex Female 2:32 AM RUBBER MIXER Gender Identity Not on file Sexual Orientation [...] HIATAL HERNIA - TRANSTHORACIC APPROACH Hiatal hernia Medical Devices Implanted Type Area Talent Buyer Device Identifier Shelf Expiration Date Model / Serial / Lot Pheedo [id number] Latitude 8-15mm Restrictor Elbow Restrictor Cement - [id number] - [id number] Implanted:Qty: 1 on 03/16/2021 by Terell Hendrickson MD at [facility] Right: Humerus [employer] [id number] 06/01/2024 [id number] / [id number] / [employer] [id number] 36mm Reverse Humerus 7d +0mm Offset Standard Liner Shoulder - S.0 - [id number] Implanted:Qty: 1 on 03/16/2021 by Terell Hendrickson MD at [facility] [employer] [id number] 11/22/2028 [id number] / .0 / [id number] [employer] 6191-1-010 Simplex P Radiopaque Full Dose Cement Bone Sterile - [id number] Implanted:Qty: 1 on 03/16/2021 by Terell Hendrickson MD at [facility] Right: Humerus [employer] [id number] 07/19/2022 6191-1-010 / / [id number] [employer] 6191-1-010 Simplex P Radiopaque Full Dose Cement Bone Sterile - [id number] Implanted:Qty: 1 on 03/16/2021 by Terell Hendrickson MD at [facility] Right: Humerus [employer] [id number] 07/19/2022 6191-1-010 / / [id number] [employer] [id number] Base Plate 26mm Tm Reverse 20m - [id number] Implanted:Qty: 1 on 03/16/2021 by Terell Hendrickson MD at [facility] Right: Humerus [employer] [id number] 05/10/2030 [id number] / / [id number] [employer] [id number] Component Glenoid Trabecular Metal Reverse Plus +0mm Offset Od36mm Shoulder Lateral Glenosphere Sterile Latex Free - [id number] Implanted:Qty: 1 on 03/16/2021 by Terell Hendrickson MD at [facility] Right: Shoulder [employer] [id number] 02/05/2031 [id number] / / [id number] [employer] 01.09682.036 Ncb Anatomical Shoulder 4.5mm 36mm Inverse Reverse Lock Self Tap - [id number] Implanted:Qty: 1 on 03/16/2021 by Terell Hendrickson MD at [facility] Right: Shoulder [employer] [id number] 11/19/2025 01.01634.036 / / [id number] [employer] 01.00295.030 Ncb Anatomical Shoulder 4.5mm 30mm Inverse Reverse Lock Self Tap - [id number] Implanted:Qty: 1 on 03/16/2021 by Terell Hendrickson MD at [facility] Right: Shoulder [employer] [id number] 11/19/2025 01.52897.030 / / [id number] [employer] [id number] 8mm 130mm Shoulder Stem Humeral Trabecular Metal Sterile Reverse - S.0 - [id number] Implanted:Qty: 1 on 03/16/2021 by Terell Hendrickson MD at [facility] [employer] [id number] 11/01/2030 [id number] / .0 / [id number] Explanted Type Area Talent Buyer Device Identifier Shelf Expiration Date Model / Serial / Lot [employer] [id number] Raghav 3/32in 9in 2 Trocar Pin Fixation Nonsterile - [id number] Explanted:Qty: 1 on 03/16/2021 at [facility] Right: Corbin [employer] [id number] / / Procedures Procedure Name Priority Date/Time Associated Diagnosis Comments COLONOSCOPY 12/12/2022 2:20 PM RUBBER MIXER from Last 3 Months or Most Recently Relevant to Health Maintenance Results * COLONOSCOPY (12/12/2022 2:20 PM RUBBER MIXER) Anatomical Region Laterality Modality Other Narrative Procedure Note Satish Monroe MD - 12/12/2022 2:20 PM CST ENDOSCOPY LAB Patient Name: Dayne Smith Procedure Date: 12/12/2022 2:20 PM Admit Type: Outpatient Room: [facility] Date of : 1950 Instrument Name: [id number] [...] Most Recently Relevant to Health Maintenance Insurance [facility] MDCR HMO REF MEDICARE SOLUTIONS MEDICARE SOLUTIONS Advance Directives For more information, please contact: [phone] Documents on File Type Date Recorded Patient Tool And Machine Maintainer Expl anation ADVANCE DIRECTIVE 01/29/2021 2:59 PM Power of Service Car Driver-Medical ADVANCE DIRECTIVE 01/15/2021 2:23 PM DAPHNE NESS [...] 6:47 PM 01/13/2021 4:51 PM Care Teams Securities Counselor Relationship Specialty Start Date End Date Unknown, Notinfile PCP - General 05/30/23 Desirae Bernstein NP Nurse Practitioner Nurse Practitioner 02/25/23 Yen Dahl RN Registered Nurse Pulmonary Disease 07/30/23
--- OUTSIDE RECORDS SUMMARY | 2024-12-28 17:39 | XMS_ITS | Clinical Summary ---
Author Organization [facility] Address [address] [place] [address] Phone Care Team Providers Care Dredge Runner Name Role Phone Unavailable Primary Care Provider Unavailabl e Medications Medication Sig Dispensed Refills Start Date End Date Status raloxifene (EVISTA) 60 MG tablet 1 tab/cap qday 01/03/2013 Active aspirin ([facility]) 81 MG EC tablet 1 tab/cap qday 01/03/2013 Active omeprazole (PRILOSEC) [address] capsule 1 tab/cap qday 01/03/2013 Acti ve cyanocobalamin (VITAMIN B-12) 1000 MCG tablet 01/23/2013 Act julian raloxifene (EVISTA) 60 MG tablet 01/23/2013 Active PARoxetine (PAXIL) 40 MG tablet 2 tab/cap qday 01/03/2013 Active Calcium Carb-Cholecalciferol (CALCIUM CARBONATE-VITAMIN D) 500-200 MG-UNIT per tablet 01/23/2013 Active cyanocobalamin, vitamin B-12, (NASCOBAL) 500 MCG/0.1ML solution 1 spray every qweek 01/03/2013 Active hydrOXYzine (ATARAX) 25 MG tablet 01/23/2013 Active clonazePAM (KlonoPIN) 0.5 MG tablet 01/23/2013 Active cholecalciferol (VITAMIN D-3) 2000 units capsule 01/23/2013 Active omega-3 (FISH OIL) 1000 MG capsule 2 bid 01/18/2014 Active risperiDONE (RisperDAL) 0.5 MG tablet 2 tab/cap bid 01/03/2013 Active traMADol (ULTRAM) 50 MG tablet 1 tab/cap bid PRN 01/03/2013 Active traZODone (DESYREL) 100 MG tablet 01/23/2013 Active multivitamin, adult, (CENTRUM) tablet 01/18/2014 Active Active Problems Problem Noted Date Diagnosed Date Bipolar II disorder 01/03/2013 Anemia 01/03/2013 Gastro-esophageal reflux disease without esophag itis 01/03/2013 Chronic kidney disease, stage 3 (moderate) 01/03 Social History Tobacco Use Types Packs/Day Years Used Date Smoking Tobacco: Never Assessed Sex and Gender Information Value Date Recorded Sex Assigned at Not on file Gender Identity Not on file Sexual Orientation Not on file Last Filed Vital Signs Vital Sign Reading Time Taken Comments Blood Pressure 100/60 08/29/2015 12:01 AM MECHANICAL SHOP LABORER Pulse 72 08/29/2015 12:01 AM MECHANICAL SHOP LABORER Temperature 36.4 C (97.5 F) 08/29/2015 12:01 AM MECHANICAL SHOP LABORER Respiratory Rate - - Oxygen Saturation - - Inhaled Oxygen Concentration - - Weight 68 kg (150 lb) 08/29/2015 12:01 AM MECHANICAL SHOP LABORER Height 160 cm (5' 3 ) 08/29/2015 12:01 AM MECHANICAL SHOP LABORER Body Mass Index 26.57 08/29/2015 12:01 AM MECHANICAL SHOP LABORER Plan of Treatment Not on file
--- OUTSIDE RECORDS SUMMARY | 2024-12-28 17:39 | XMS_ITS ---
Author Organization [facility] Address [address] [facility] [address] [place] [address] Care Team Providers Care Supervisor Phosphorus Processing Name Role Phone zKarlie, zzzzProvider Unavailable Unav ailable REASON FOR VISIT EMR-Brett Encounters Encounter Location Date Provider Diagnosis [facility] [address] [address] [place] [address] 08/10/2023 zzzzProvider zzzzMigration Plan Of Treatment No Information Progress Notes * Erica SMITHarnoldoeDOB: (74 yo F)Acc No.[id number]:08/10/2023 Patient: Erica MARQUES :1950 A ge:73 Y S ex:Female Address:[address] [place] [address] [place], [address] Subjective: * Chief Complaints: * E MR-Brett * Medical History: * Surgical History: * Hospitalization/Major Diagno stic Procedure: * Medications: Objective: * Vitals: * Physical Examination: Assessment: Plan: * Treatment: * Procedure Codes: * * Date:
== END 2024-12-28 15:39 | disposition home or self-care (01) ==
PROVIDERS: PCP Nurse Practitioner Family; Visit Provider Nurse Practitioner Family
DX: E04.2 Nontoxic multinodular goiter (principal)
CPT/HCPCS: 76536

== ENCOUNTER 2025-02-21 14:47 | Outpatient (CLI) | payer MEDICARE, SELFPAY ==
--- NOTE | ~2025-02-21 | DEXA_ITS ---
Bone Density Report Name: SENA MUNOZ Age: 74 Sex: Female Ethnicity: White Date of : 1950 Indication: osteopenia; prior fracture; Referring Provider: MARIAH, CAYETANO Study: Bone densitometry was performed. Exam Date: February 21, 2025 Accession number: [id number] Bone Density: Region BMD T-score Z-score Classification AP Spine(L1-L4) 1.010 -0.3 2.2 Normal Femoral Neck (Left) 0.508 -3.1 -0.9 Osteoporosis Total Hip (Left) 0.649 -2.4 -0.5 Osteopenia World Health Organization criteria for BMD impression classify patients as: Normal (T-score at or above -1.0), Osteopenia (T-score between -1.0 and -2.5), or Osteoporosis (T-score at or below -2.5). 10-year Fracture Risk: FRAX not reported because: Some T-score for Spine Total or Hip Total or Femoral Neck at or below -2.5 Prior hip or vertebral fracture Previous Exams: Region Exam Age BMD T-score BMD Change BMD Change Date g/cm2 vs Baseline vs Previous Total Hip(Left) 02/21/2025 74 0.649 -2.4 -0.123 (-15.9% -0.081 (-11.1% 12/24/2019 69 0.730 -1.7 -0.042 (-5.4%) -0.042 (-5.4%) 09/13/2015 65 0.772 -1.4 *Denotes significance at 95% confidence level, LSC for Total Hip = 0.027 g/cm2 Clinical Information Provided by Patient: Have had a previous hip or vertebral fracture Has had a low trauma fracture Patient maximum height was 64.0 Menopause Age: 48 No regular weight bearing exercise Does not regularly consume dairy products Onset of menses at age 11 Number of children 0 Impression: The patient has established osteoporosis, based on the Left Femoral Neck T-score and the existence of a prior fracture. The patient has risk factors, including: previous fracture. The BMD for the Total Hip(Left) decreased, changing by -11.1% since the last DXA exam. Discussion: HIGH RISK OF FRACTURE. BONE DENSITY IS UNDESIRABLY LOW AT ONE OR MORE SKELETAL SITES, CONSISTENT WITH POSTMENOPAUSAL OSTEOPOROSIS. This patient's lowest T-score, in a patient who has previously fractured, meets the World Health Organization's (WHO) criteria for severe osteoporosis. In untreated patients, the risk of osteoporotic fracture increases approximately two-fold for each 1.0 SD decrease in T-score. Low bone density is not the only risk factor for fracture; also consider factors such as patient's age, frailty or poor health, risk of falling, risk of injury, previous osteoporotic fracture, family history of osteoporosis, cigarette smoking, low body weight, etc. Not everyone with low bone mineral density has osteoporosis; osteomalacia and other metabolic bone disorders should also be considered. Patients who have osteoporosis should be evaluated for specific diseases and conditions (secondary causes) that may cause or contribute to bone loss. The [place] [employer] (AACE) and National Osteoporosis Foundation (NOF) recommend pharmacologic intervention for all postmenopausal women with a previous hip or vertebral fracture and a T-score in this range. The patient should follow a healthful lifestyle (good nutrition with adequate calcium and vitamin D, and appropriate weight-bearing exercise). Follow-Up: Consider a repeat BMD and Vertebral Fracture Assessment (VFA) exam in 2 years or sooner if medically necessary, to reassess this patient's status. Reported by: KEYLA on 02/21/2025 3:41:00 PM. Reviewed, dictated and finalized at location AJudy HAWKINS
--- OUTSIDE RECORDS SUMMARY | 2025-02-21 15:31 | XMS_ITS | Encounter Summary ---
Author Organization [facility] Healthcare Address [address] [place] [address] Care Team Providers Care Manager Six Sigma Name Role Phone Desirae Bernstein NP Primary Care Provider [phone] Alex Ge MD Unavailable [phone] Garima Duenas Primary Care Provider + Desirae Bernstein NP Unavailable [phone] Unknown, Notinfile Primary Care Provider Unavail able Yen Dahl RN Unavailable UnavailBlanca Aponte Unavailable Unavailable Encounter Details Date Type Department Care Team (Late st Contact Info) Description 07/20/2021 Orders Only [facility] Health Information Management [address] [place] [address] Scanning, Provider Social History Tobacco Use Types [...] than three times a week 03/19/2021 Attends Denominational Services Not on file 03/19 Active Member [...] place to sleep or slept in a usp (including now)? No 03/19/2021 Comments No Sex and Gender Information Value Date Recorded Sex Assigned at Not on file Legal Sex Female 2:32 AM OIL DERRICK OPERATOR Gender Identity Not on file Sexual Orientation [...] on filedocumented in this encounter Care Teams Manager Six Sigma Relationship Specialty Start Date End Date Desirae Bernstein NP [address] [place] [address] PCP - General Nurse Practitioner 08/21/20 08/08/22 Garima Duenas PA [address] [place] [address] PCP - General Nurse Practitioner 08/09/22 05/29/23 Unknown, Notinfile PCP - General 05/30/23 Alex Ge MD [address] [place] [address] Referring Physician Thoracic Surgery 01/13/21 01/07/24 Desirae Bernstein NP [address] [place] [address] Nurse Practitioner Nurse Practitioner 02/25/23 Yen Dahl, RN Registered Nurse Pulmonary Disease 07/30/23 Blanca Monique RMA Surgical Prehabilitation and Readiness (SPAR) Coordinator 01/02/24 01/18/24 documented as of this encounter
--- OUTSIDE RECORDS SUMMARY | 2025-02-21 15:31 | XMS_ITS | Encounter Summary ---
Author Organization [facility] Address [address] [place] [address] Care Team Providers Care Review Nurse Name Role Phone Desirae Bernstein SILVINO Primary Care Provider [phone] Enid Doyle RN Unavailable [phone] Encounter Details Date Type Department Care Team (Late st Contact Info) Description 08/07/2020 Prep for Procedure [facility] [address] [place], [place] [id number] Jeremy Salmeron MD [address] [address] Social History Tobacco Use Types Packs/Day Years [...] Sex Assigned at Female 12/21/2024 12:24 PM STATUS CONTROLLER Legal Sex Female 12:55 PM CDT Gender [...] Care Team (Late st Contact Info) Description 02/23/2025 1:30 PM CDT Office Visit [facility] [address] [place] [address] Chelsey Cummings Priyanka, PT [address] [place] [address] documented as of this encounter Results * PRE-SURGICAL/PRE-PROCEDURE CORONAVIRUS (COVID 19) (08/08/2020 2:11 PM CDT) CORONAVIRUS SARS COV 2 PCR (RESP) NOT DETECTED NOT DETECTED 08/09/2020 3:16 PM CDT [facility] Comment: A Not Detected (negative) test result [...] providers and patients using the following websites: https://www.[email or web address]/home/Covid-19/HCP/NAAT/fact-sheet2 https://www.[facility].com/home/Covid-19/Patients/NAAT/ fact-sheet2 This test has been authorized by the FDA under an Emergency Use Authorization (EUA) for use by authorized laboratories. Due to the current public health emergency, [facility] is receiving a high volume of samples [...] about COVID-19 can be found at the [facility] website: www.[facility].Audience Partners/Covid19. Test performed at [facility] [address] [place] [address] Director: CLAUDINE ALCANTARA DO,MPH FIRST TEST UNKNOWN 08/08/2020 2:06 PM CDT [facility] EMPLOYED IN HEALTHCARE NO 08/08/2020 2:06 PM CDT [facility] SYMPTOMATIC DEFINED BY CDC UNKNOWN 08/08/2020 2:06 PM CDT [facility] HOSPITALIZATION STATUS NO 08/08/2020 2:06 PM CDT [facility] PATIENT IN ICU NO 08/08/2020 2:06 PM CDT [facility] RESIDENT OF [facility] NO 08/08/2020 2:06 PM CDT [facility] NO 08/08/2020 2:46 PM CDT [facility] PATIENT'S RACE WHITE OR 08/08/2020 2:06 PM CDT [facility] ETHNICITY NONHISPANIC 08/08/2020 2:06 PM CDT [facility] SOURCE (QST) NASOPHARYNGEAL SWAB 08/08/2020 2:06 PM CDT [facility] NASOPHARYNGEAL SWAB / Unknown 08/08/2020 2:11 PM CDT us Jeremy Salmeron MD MICROBIOLOGY - GENERAL ORDERABLE S Final Result [facility] [address] [place] [address], [place] [phone] [facility] [address] [place] [address], documented in this encounter Visit Diagnoses Diagnosis Preop testing- Primary Preoperative examination, unspecified documented in this encounter Additional Health Concerns Infection Onset Date Last Indicated Resolved Time COVID-19 Rule Out 08/08/2020 08/08/2020 08/09/2020 3:17 PM CDT Assessment Noted Time PHQ-9 Depression Total Score: 2 04/06/20 20 11:37 AM CDT documented as of this encounter Care Teams Review Nurse Relationship Specialty Start Date End Date Desirae Bernstein FNP [address] [place] [address] PCP - General Nurse Practitioner Family 03/22/19 Enid Doyle, RN [address] [address] [place] Patcher (Ambulatory) REGISTERED NURSE 01/12/21 02/19/23 documented as of this encounter
--- OUTSIDE RECORDS SUMMARY | 2025-02-21 15:31 | XMS_ITS | Clinical Summary ---
Author Organization [facility] Address [address] [place] [address] Care Team Providers Care Onsite Health Coach Name Role Phone Desirae Bernstein APRSHAYNA Primary Care Provider [phone] Source Comments [facility],non-owned Affiliates and Associated Physician Practices is amultiple site organization consisting of ambulatory clinics and hospital sitesin [place], [place], [place] and [place]. This disclosure is being madepursuant to the Care Everywhere program and may not contain all information available regarding this patient. Last updated 18.[facility] Allergies Active Allergy Reactions Criticality Noted Date Comments Morphine Anaphylaxis High 02/20/2018 Medications * Be aware that medications may not be up to date on this document. Alwaysverify current medications with the patient. Venlafaxine HCl (EFFEXOR XR PO) Acti ve PANTOPRAZOLE SODIUM PO Active LAMOTRIGINE ER PO Active RISPERIDONE PO Activ e CLONAZEPAM PO Active PAROXETINE HCL PO Active traZODone (DESYREL) 100 MG tablet Take 100 mg by mouth at bedtime Active Social History Tobacco Use Types Packs/Day Years Used Date Smoking Tobacco: Never Smokeless Tobacco: Never Comments No Sex and Gender Information Value Date Recorded Sex Assigned at Not on file Legal Sex Female 2:36 PM CDT Gender Identity Not on file Sexual Orientation Not on file Last Filed Vital Signs Vital Sign Reading Time Taken Comments Blood Pressure 102/68 02/20/2018 4:10 PM CDT Pulse 83 02/20/2018 4:10 PM CDT Temperature 36.7 C (98 F) 02/20/2018 4:10 PM CDT Respiratory Rate 16 02/20/2018 4:10 PM CDT Oxygen Saturation 98% 02/20/2018 4:10 PM CDT Inhaled Oxygen Concentration - - Weight 73.5 kg (162 lb) 02/20/2018 4:10 PM CDT Height 160 cm (5' 3 ) 02/20/2018 4:10 PM CDT Body Mass Index 28.7 02/20/2018 4:10 PM CDT Plan of Treatment Health Maintenance Due Date Last Done Comments BONE DENSITY TESTING 1950 HEPATITIS C SCREENING 05/01/1966 DTAP/TDAP/TD VACCINES (1 - Tdap) 1967 PNEUMOCOCCAL VACCINE 50+ (1 of 1 - PCV) 1998 ZOSTER VACCINE (1 of 2) 1998 SCREENING FOR DIABETES 02/20/2018 Respiratory Syncytial Virus (RSV) Vaccine Pt: or over 60 yrs (1 - 1-dose 75+ series) 2023 COVID-19 VACCINE ( - 2023-2 5 season) 2024 DEPRESSION SCREENING 10/20/2024 INFLUENZA VACCINE (Season Ended) 2025 HEPATITIS B VACCINE Aged Out No longe r eligible based on patient's age to complete this topic HIB VACCINE Aged Out No longer eligi ble based on patient's age to complete this topic HPV VACCINE Aged Out No longer eligi ble based on patient's age to complete this topic MENINGOCOCCAL (Group B) VACC INE SHARED DECISION-MAKING Aged Out No longer eligibl e based on patient's age to complete this topic MENINGOCOCCAL GROUPS A/C/Y/W VACCINE Aged Out No longer eligible b ased on patient's age to complete this topic Insurance MANAGED MEDICARE ADV Care Teams Onsite Health Coach Relationship Specialty Start Date End Date Desirae Bernstein APRN-JESSICA [address] [place] [address] PCP - General Nurse Practitioner 11/19/24
--- OUTSIDE RECORDS SUMMARY | 2025-02-21 15:32 | XMS_ITS | Referral Summary ---
Author Organization [facility] Virtual Care Address [address] [place] [address] Phone Care Team Providers Care Raymond Mill Operator Name Role Phone Desirae Bernstein NP Unavailable [phone] Unknown, Notinfile Primary Care Provider Unavail able [...] (six) hours 30 tablet 1 Active multivitamin,tx -vzaz-Vy-YJ-min 27-0.4 mg tablet Take 1 tablet by [...] (11/18/2022): Added automatically from request for surgery [id number] Encounter for colonoscopy due to history of colo charlotte polyp 08/15/2022 Overview (08/15/2022): Added automatically from request for surgery [id number] Aseptic necrosis of head or neck of [...] (01/05/2021): Added automatically from request for surgery [id number] 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 No 03/19/2021 Personal Safety Answer Date Recorded Have you ever been in or are you currently in a harmful physical or emotional relationship or is someone making you feel afraid or unsafe? Denies 02/18/2024 Comments No Sex and Gender Information Value Date Recorded Sex Assigned at Not on file Legal Sex Female 2:32 AM ELECTRONICS ASSEMBLER Gender Identity Not on file Sexual Orientation [...] Hiatal hernia Medical Devices Implanted Type Area Bicycle Repair Technician Device Identifier Shelf Expiration Date Model / Serial / Lot Lessno [id number] Latitude 8-15mm Restrictor Elbow Restrictor Cement - [id number] - [id number] Implanted:Qty: 1 on 03/16/2021 by Terell Hendrickson MD at [facility] Right: Humerus [employer] [id number] 06/01/2024 [id number] / [id number] / [employer] [id number] 36mm Reverse Humerus 7d +0mm Offset Standard Liner Shoulder - S.0 - [id number] Implanted:Qty: 1 on 03/16/2021 by Terell Hendrickson MD at [facility] [employer] [id number] 11/22/2028 [id number] / .0 / [id number] [employer] 6191-1-010 Simplex P Radiopaque Full Dose Cement Bone Sterile - [id number] Implanted:Qty: 1 on 03/16/2021 by Terell Hendrickson MD at [facility] Right: Humerus [employer] [id number] 07/19/2022 6191-1-010 / / [id number] [employer] 6191-1-010 Simplex P Radiopaque Full Dose Cement Bone Sterile - [id number] Implanted:Qty: 1 on 03/16/2021 by Terell Hendrickson MD at [facility] Right: Humerus [employer] [id number] 07/19/2022 6191-1-010 / / [id number] [employer] [id number] Base Plate 26mm Tm Reverse 20m - [id number] Implanted:Qty: 1 on 03/16/2021 by Terell Hendrickson MD at [facility] Right: Humerus [employer] [id number] 05/10/2030 [id number] / / [id number] [employer] [id number] Component Glenoid Trabecular Metal Reverse Plus +0mm Offset Od36mm Shoulder Lateral Glenosphere Sterile Latex Free - [id number] Implanted:Qty: 1 on 03/16/2021 by Terell Hendrickson MD at [facility] Right: Shoulder [employer] [id number] 02/05/2031 [id number] / / [id number] [employer] 01.55193.036 Ncb Anatomical Shoulder 4.5mm 36mm Inverse Reverse Lock Self Tap - [id number] Implanted:Qty: 1 on 03/16/2021 by Terell Hendrickson MD at [facility] Right: Shoulder [employer] [id number] 11/19/2025 01.98055.036 / / [id number] [employer] 01.74638.030 Ncb Anatomical Shoulder 4.5mm 30mm Inverse Reverse Lock Self Tap - [id number] Implanted:Qty: 1 on 03/16/2021 by Terell Hendrickson MD at [facility] Right: Shoulder [employer] [id number] 11/19/2025 01.07719.030 / / [id number] [employer] [id number] 8mm 130mm Shoulder Stem Humeral Trabecular Metal Sterile Reverse - S.0 - [id number] Implanted:Qty: 1 on 03/16/2021 by Terell Hendrickson MD at [facility] [employer] [id number] 11/01/2030 [id number] / .0 / [id number] Explanted Type Area Bicycle Repair Technician Device Identifier Shelf Expiration Date Model / Serial / Lot Microaire [employer] Instruments [id number] Raghav 3/32in 9in 2 Trocar Pin Fixation Nonsterile - [id number] Explanted:Qty: 1 on 03/16/2021 at [facility] Right: Corbin [employer]dar[employer] [id number] / / Procedures Procedure Name Priority Date/Time Associated Diagnosis Comments COLONOSCOPY 12/12/2022 2:20 PM ELECTRONICS ASSEMBLER from Last 3 Months or Most Recently Relevant to Health Maintenance Results * COLONOSCOPY (12/12/2022 2:20 PM ELECTRONICS ASSEMBLER) Anatomical Region Laterality Modality Other Narrative Procedure Note Satish Monroe MD - 12/12/2022 2:20 PM CST ENDOSCOPY LAB Patient Name: Dayne Smith Procedure Date: 12/12/2022 2:20 PM Admit Type: Outpatient Room: [facility] Date of : 1950 Instrument [...] Relevant to Health Maintenance Insurance [facility] H[facility] REF [facility] Address: [address] [address] [place] [address] UHC MEDICARE ADVANTAGE [facility] Address: [address] [address] [place] [address] UHC MEDICARE ADVANTAGE [facility] Address: [address] [address] [place] [address] Advance Directives For more information, please contact: [phone] Documents on File Type Date Recorded Patient Electrical Troubleshooter Expl anation ADVANCE DIRECTIVE 01/29/2021 2:59 PM Power of Senior Sas Developer-Medical ADVANCE DIRECTIVE 01/15/2021 2:23 PM DAPHNE NESS [...] 6:47 PM 01/13/2021 4:51 PM Care Teams Raymond Mill Operator Relationship Specialty Start Date End Date Unknown, Notinfile PCP - General 05/30/23 Desirae Bernstein NP Nurse Practitioner Nurse Practitioner 02/25/23 Yen Dahl RN Registered Nurse Pulmonary Disease 07/30/23
--- OUTSIDE RECORDS SUMMARY | 2025-02-21 15:32 | XMS_ITS | Clinical Summary ---
Author Organization [facility] Address [address] [place] [address] Phone Care Team Providers Care Fabric Worker Foreman Name Role Phone Unavailable Primary Care Provider Unavailabl e Medications raloxifene (EVISTA) 60 MG tablet 1 tab/cap qday 01/03/2013 Active aspirin (ST JERSON) 81 MG EC tablet 1 tab/cap qday 01/03/2013 Active omeprazole (PRILOSEC) [address] capsule 1 tab/cap qday 01/03/2013 Active cyanocobalamin (VITAMIN B-12) 1000 MCG tablet 01/23/2013 Act julian raloxifene (EVISTA) 60 MG tablet 01/23/2013 Active PARoxetine (PAXIL) 40 MG tablet 2 tab/cap qday 01/03/2013 Active Calcium Carb-Cholecalcif mary kate (CALCIUM CARBONATE-VITAMI N D) 500-200 MG-UNIT per tablet 01/23/2013 Active [...] Years Used Date Smoking Tobacco: Never Assessed Comments Unknown Sex and Gender Information Value Date Recorded Sex Assigned at Not on file Legal Sex Female 7:56 AM MST Gender Identity Not on file Sexual Orientation Not on file Last Filed Vital Signs Vital Sign Reading Time Taken Comments Blood Pressure 100/60 08/29/2015 12:01 AM DRIVEWAY SEALER Pulse 72 08/29/2015 12:01 AM DRIVEWAY SEALER Temperature 36.4 C (97.5 F) 08/29/2015 12:01 AM DRIVEWAY SEALER Respiratory Rate - - Oxygen Saturation - - Inhaled Oxygen Concentration - - Weight 68 kg (150 lb) 08/29/2015 12:01 AM DRIVEWAY SEALER Height 160 cm (5' 3 ) 08/29/2015 12:01 AM DRIVEWAY SEALER Body Mass Index 26.57 08/29/2015 12:01 AM DRIVEWAY SEALER Plan of Treatment Not on file
--- OUTSIDE RECORDS SUMMARY | 2025-02-21 15:32 | XMS_ITS ---
Author Organization [facility] Virtual Care Address [address] [place] [address] Phone Care Team Providers Care Cnc Manufacturing Engineer Name Role Phone Desirae Bernstein NP Unavailable [phone] Unknown, Notinfile Primary Care Provider Unavail able [...] (11/18/2022): Added automatically from request for surgery [id number] Encounter for colonoscopy due to history of colo charlotte polyp 08/15/2022 Overview (08/15/2022): Added automatically from request for surgery [id number] Aseptic necrosis of head or neck of [...] (01/05/2021): Added automatically from request for surgery [id number] 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
--- OUTSIDE RECORDS SUMMARY | 2025-02-21 15:32 | XMS_ITS | Clinical Summary ---
Author Organization [facility] Virtual Care Address [address] [place] [address] Phone Care Team Providers Care Drying Machine Receiver Name Role Phone Desirae Bernstein NP Unavailable [phone] Unknown, Notinfile Primary Care Provider Unavail able [...] (six) hours 30 tablet 1 Active multivitamin,tx -uzui-Kl-ZR-min 27-0.4 mg tablet Take 1 tablet by [...] (11/18/2022): Added automatically from request for surgery [id number] Encounter for colonoscopy due to history of colo charlotte polyp 08/15/2022 Overview (08/15/2022): Added automatically from request for surgery [id number] Aseptic necrosis of head or neck of [...] (01/05/2021): Added automatically from request for surgery [id number] 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 No 03/19/2021 Personal Safety Answer Date Recorded Have you ever been in or are you currently in a harmful physical or emotional relationship or is someone making you feel afraid or unsafe? Denies 02/18/2024 Comments No Sex and Gender Information Value Date Recorded Sex Assigned at Not on file Legal Sex Female 2:32 AM TRIMMER MACHINE Gender Identity Not on file Sexual Orientation [...] season) 2024 08/14/2021, 01/04/2021, 12/07/2020 Influenza Vaccine (Season Ended) 2025 08/08/2022, 07/20/2021, 09/13/2019, Additional history exists DTaP/Tdap/Td Vaccine (3 - Td or Tdap) 07/14/2030 07/14/2020, 05/20/2017 Pneumococcal vaccine 65+ Completed 020, 07/01/2019, 09/05/2018, Additional history exists Colon Cancer Screening-Colonoscopy Discontinued 12/12/2022, 08/23/2022, 01/31/2021, Additional history exists Breast Cancer Screening-Mammogram Discontinued 023 Medical Devices Implanted Type Area Care Director Device Identifier Shelf Expiration Date Model / Serial / Lot Tornier Inc [id number] Latitude 8-15mm Restrictor Elbow Restrictor Cement - [id number] - [id number] Implanted:Qty: 1 on 03/16/2021 by Terell Hendrickson MD at [facility] Right: Humerus [employer] [id number] 06/01/2024 [id number] / [id number] / [employer] [id number] 36mm Reverse Humerus 7d +0mm Offset Standard Liner Shoulder - S.0 - [id number] Implanted:Qty: 1 on 03/16/2021 by Terell Hendrickson MD at [facility] [employer] [id number] 11/22/2028 [id number] / .0 / [id number] [employer] 6191-1-010 Simplex P Radiopaque Full Dose Cement Bone Sterile - [id number] Implanted:Qty: 1 on 03/16/2021 by Terell Hendrickson MD at [facility] Right: Humerus [employer] [id number] 07/19/2022 6191-1-010 / / [id number] [employer] 6191-1-010 Simplex P Radiopaque Full Dose Cement Bone Sterile - [id number] Implanted:Qty: 1 on 03/16/2021 by eTrell Hendrickson MD at [facility] Right: Humerus [employer] [id number] 07/19/2022 6191-1-010 / / [id number] [employer] [id number] Base Plate 26mm Tm Reverse 20m - [id number] Implanted:Qty: 1 on 03/16/2021 by Terell Hendrickson MD at [facility] Right: Humerus [employer]jne [employer] [id number] 05/10/2030 [id number] / / [id number] [employer] [id number] Component Glenoid Trabecular Metal Reverse Plus +0mm Offset Od36mm Shoulder Lateral Glenosphere Sterile Latex Free - [id number] Implanted:Qty: 1 on 03/16/2021 by Terell Hendrickson MD at [facility] Right: Shoulder [employer] [id number] 02/05/2031 [id number] / / [id number] [employer] 01.44025.036 Ncb Anatomical Shoulder 4.5mm 36mm Inverse Reverse Lock Self Tap - [id number] Implanted:Qty: 1 on 03/16/2021 by Terell Hendrickson MD at [facility] Right: Shoulder [employer] [id number] 11/19/2025 01.12723.036 / / [id number] [employer] 01.96429.030 Ncb Anatomical Shoulder 4.5mm 30mm Inverse Reverse Lock Self Tap - [id number] Implanted:Qty: 1 on 03/16/2021 by Terell Hendrickson MD at [facility] Right: Shoulder [employer] [id number] 11/19/2025 01.40646.030 / / [id number] [employer] [id number] 8mm 130mm Shoulder Stem Humeral Trabecular Metal Sterile Reverse - S.0 - [id number] Implanted:Qty: 1 on 03/16/2021 by Terell Hendrickson MD at [facility] [employer] [id number] 11/01/2030 [id number] / .0 / [id number] Explanted Type Area Care Director Device Identifier Shelf Expiration Date Model / Serial / Lot Microaire Surgical [employer] [id number] Raghav 3/32in 9in 2 Trocar Pin Fixation Nonsterile - [id number] Explanted:Qty: 1 on 03/16/2021 at [facility] Right: Humerus [employer] [id number] / / Procedures Procedure Name Priority Date/Time Associated Diagnosis Comments COLONOSCOPY 12/12/2022 2:20 PM TRIMMER MACHINE from Last 3 Months or Most Recently Relevant to Health Maintenance Results * COLONOSCOPY (12/12/2022 2:20 PM TRIMMER MACHINE) Anatomical Region Laterality Modality Other Narrative Procedure Note Satish Monroe MD - 12/12/2022 2:20 PM CST ENDOSCOPY LAB Patient Name: Dayne Smith Procedure Date: 12/12/2022 2:20 PM Admit Type: Outpatient Room: [facility] Date of : 1950 Instrument [...] Most Recently Relevant to Health [place] [address] [facility] MEDICARE ADVANTAGE [facility] MEDICARE ADVANTAGE Advance Directives For more information, please contact: [phone] Documents on File Type Date Recorded Patient Resident Programs Assistant Expl anation ADVANCE DIRECTIVE 01/29/2021 2:59 PM Power of Mechanical Engineering Technologist-Medical ADVANCE DIRECTIVE 01/15/2021 2:23 PM LIVIN G WILL * Full Code (Latest Code Status on [...] 6:47 PM 01/13/2021 4:51 PM Care Teams Drying Machine Receiver Relationship Specialty Start Date End Date Unknown, Notinfile PCP - General 05/30/23 Desirae Bernstein NP Nurse Practitioner Nurse Practitioner 02/25/23 Yen Dahl RN Registered Nurse Pulmonary Disease 07/30/23
--- OUTSIDE RECORDS SUMMARY | 2025-02-21 15:32 | XMS_ITS | Clinical Summary ---
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 01/24/20 13 Active lamotrigine 100 MG tabletIndicatio ns:01/13 per [facility] dc instructions Take 0.5 tablets (50 mg total) by mouth daily. Indications: 01/13 per [facility] dc instructions 02/09/20 19 Active Multiple Vitamins-Minera ls (CENTRUM) Tab Take 1 tablet by mouth daily. 01/19/20 14 Active trazodone 100 MG tablet Take 1 tablet (100 mg total) by mouth nightly at bedtime. 01/24/20 13 Active aspirin-acetami nophen-caffeine (EXCEDRIN MIGRAINE) 250-250-65 MG tablet Take 1 tablet by mouth every 6 (six) hours as needed for Pain. Active calcium carbonate-vitam in D 500-200 MG-UNIT Tab Take 1 tablet by mouth 2 (two) times daily. Active venlafaxine XR 150 MG 24 hr capsule Take 1 capsule (150 mg total) by mouth daily. Pt takes 1 tablet of the 150mg. 08/01/20 Active acetaminophen 500 MG tablet Take 2 tablets (1,000 mg total) by mouth every 6 (six) hours as needed for Pain. Not to exceed 3gm/24h Active ibuprofen 400 MG tablet ibuprofen 400 mg tablet Active escitalopram (LEXAPRO) 5 MG tablet Take 1 tablet (5 mg total) by mouth daily. 01/12/20 Active risperiDONE 0.5 MG tablet Take 1 tablet (0.5 mg total) by mouth nightly. 01/04/20 13 2024 Discontinued( Pt. elected to discontinue med) PARoxetine 40 MG tablet Take 1 tablet (40 mg total) by mouth daily. 08/01/202024 Discontinued( Pt. elected to discontinue med) omeprazole (PRILOSEC) 40 MG capsule Take 1 capsule (40 mg total) by mouth 2 (two) times daily. 08/23/202024 Discontinued( Pt. elected to discontinue med) Active Problems Problem Noted Date Diagnosed Date Closed fracture of one rib o f right side with routine healing, subsequent encounter 12/10/2023 Physical deconditioning 12/10/2023 Falls frequently 12/10/2023 Thyroid nodule 12/10/2023 Urine findings abnormal 05/28/2023 Esophagitis 11/18/2022 Overview (12/05/2022): Added automatically from request for surgery [id number] Urinary retention 04/19/2022 B12 deficiency 07/20/2021 Malignant carcinoid tumor of the bronchus and lung ([facility]) 03/23/2021 Presence of right artificial shoulder joint 01/2021 Major depressive disorder, recurrent, unspecifie d 03/23/2021 Hyperlipidemia, unspecified 03/23/2021 Gastro-esophageal reflux dis ease with esophagitis, without bleeding 03/23/2021 Fatty (change of) liver, not elsewhere classifie d 03/23/2021 Anxiety disorder, unspecified 03/23/2021 Motion sickness 03/23/2021 Closed fracture of [...] 01/23/2021 Malignant neoplasm of hilus of lung ([facility] /[facility]) 01/05/2021 Overview (01/23/2021): Added automatically from request for surgery [id number] Malignant carcinoid tumor of lung ([facility]/ [facility]) 12/28/2020 Overview (01/23/2021): Last Assessment & [...] (08/07/2020): Added automatically from request for surgery [id number] Black stools 07/17/2020 History of partial colectomy [...] Electrocardiogram abnormal Anemia 01/03/2013 Bipolar II disorder (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) 01/23/2021 07/20/2021 Moderate malnutrition ([facility]) 01/12/2021 07/20/2021 Encounter for screening colonoscopy 07/17/2020 07/24/2020 Encounter for screening for osteoporosis 03/24/2019 06/30/2020 Encounters Date Type Department Care Team Description 02/18/2025 Telephone [facility] [address] [place] [id number] Farrah Hernandez PTA Called To Cancel Office Appt. 02/14/2025 11:00 AM CDT Office Visit [facility] [address] [place], [place] [id number] Desirae Bernstein, Chelsey Avendano, PT Balance Problem 02/14/2025 Travel 02/07/2025 1:30 PM CDT Office Visit [facility] [address] [place] [id number] Chelsey Cummings, PT Desirae Bernstein FNP Balance Problem 02/07/2025 Travel 01/25/2025 2:00 PM CDT Office Visit [facility] [address] [place] [address] Desirae Bernstein FNP Annual 01/25/2025 Travel 01/19/2025 Telephone [place] [address] [place] [address] Desirae Bernstein FNP Information 01/14/2025 Telephone [facility] [address] [place] [phone] Farrah Hernandez PTA Called To Cancel Office Appt. 01/13/2025 Scan [facility] SRVCS Scanned, [facility] 01/05/2025 2:15 PM CDT Office Visit [facility] Physical [facility] [address] [place] [address] Desirae Bernstein FNP Weedon, Meaghan B, PT Balance Problem 01/05/2025 Travel 12/30/2024 Telephone [place] [address] [place] [address] Desirae Bernstein FNP Results 12/28/2024 Scan [facility] [employer] SRVCS Scanned, [facility] from Last 3 Months Immunizations Immunization Administration Dates Next Due Abrysvo Respiratory Syncytia l Virus (RSV) 0.5 mL, PF 07/14/2024 FLUAD (IIV, Trivalent, 0.5 M L Pre-filled Syringe) 07/14/2024 Fluad influenza vaccine, Quadrivalent (aIIV4), Inactivated, adjuvanted, preservative free, 0.5 mL,IM use 09/05/2018 Fluzone High Dose - >Age 65 (Prefilled Syringe) 08/08/2022,07/20/2021,09/13/2019,09/0208/08/2022 Fluzone Intradermal (IIV3) 10/30/2012 Hepatitis A (Generic) 05/17/2008 Hepatitis A (Havrix [address]) 05/17/2008 Hepatitis B (Generic: Adult) 07/18/2008,05/17/20 08 Influenza (Generic) 09/05/2018,08/16/2015,2012 Influenza Adult (Generic) 08/08/2022,07/20/2021, 09/02/2018 MMR (MMRII) 05/20/2017 MODERNA COVID-19 (12+) MRNA, LNP-S, PF, 100 MCG/ 0.5 ML DOSE 08/14/2021,01/04/2021,12/07/2020 Measles, Mumps & Rubella Vac Sc 05/20/2017 PFIZER COVID-19 (12+) MRNA, LNP-S, PF, LOBO-SUCROSE, 30 MCG/0.3 ML (COMIRNATY) 07/14/2024 PFIZER COVID-19 (RUIZ CAP), MRNA, LNP-S, PF, 30 MCG/0.3 ML LOBO-SUCROSE, IM 04/19/2022 PFIZER COVID-19 BIVALENT (12 +) mRNA, LNP-S, PF, 30 MCG/0.3 ML DOSE 08/08/2022 Pneumococcal (Pneumovax 23) 04/06/2020 Pneumococcal (Prevnar 13) 07/01/2019,09/05/2018, 09/02/2018 Tdap (Boostrix) 07/14/2020 Tdap (Generic) 05/20/2017 Zoster (Zostavax) 20034 Unt/0.65Ml 10/30/2012 Family History Medical History Relation [...] Frequency of Binge Drinking Not on file 0612/2018 PHQ-2 Answer Date Recorded Patient Health Questionnaire-2 Score 3 01/25/2025 Comments No Sex and Gender Information Value Date Recorded Sex Assigned at Female 12/21/2024 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 Legal Sex Female 12:55 PM CDT Gender Identity Not on file Sexual Orientation Not on file Last Filed Vital Signs Vital Sign Reading Time Taken Comments Blood Pressure 138/88 01/25/2025 2:12 PM CDT Pulse 87 01/25/2025 2:12 PM CDT Temperature 37.1 C (98.8 F) 01/25/2025 2:12 PM CDT Respiratory Rate 16 05/21/2024 11:2 6 AM CDT Oxygen Saturation 98% 01/25/2025 2:12 PM CDT Inhaled Oxygen Concentration - - Weight 63.4 kg (139 lb 11.2 oz) 01/25/2025 2:12 PM CDT Height 160 cm (5' 3 ) 01/25/2025 2:12 PM CDT Body Mass Index 24.75 01/25/2025 2:12 PM CDT Plan of Treatment Upcoming Encounters Date Type Department Care Team (Late st Contact Info) Description 02/23/2025 1:30 PM CDT Office Visit [facility] [address] [place] [address] Chelsey Cummings, PT [address] [place] [address] Health Maintenance Due Date Last Done Comments Hepatitis C 1968 Annual Medicare Wellness Visit 2013 Zoster Vaccines (2 of 3) 05/21/2025 10/30/2012 Pos tponed from 12/25/2012 (Going to Outside Clinic) COVID-19 Vaccine (6 - Moderna risk season) 2026 07/14/2024, 08/08/2022, 04/19/2022, Additional history exists Postponed from 01/11/2025 (Patient Refused) DTaP, Tdap and Td Vaccines (3 - Td or Tdap) 07/14/2030 07/14/2020, 05/20/2017 Dexa Scan (General) Completed 12/24/2019 Pneumococcal Vaccine: 50+ Years Completed 04/06/2020, 07/01/2019, 09/05/2018, Additional history exists Colorectal Cancer Screening Colonoscopy (10 Years) Discontinued 12/12/2022, 08/23/2022, 09/29/2020, Additional history exists RSV Immunization or 60+ Years Completed 07/14/2024 PHQ-2 (Physician [place]) Completed 01/25/2025 Meningococcal B Vaccine Aged Out No l onger eligible based on patient's age to complete this topic Meningococcal Vaccine Aged Out No dong bandar eligible based on patient's age to complete this topic RSV Immunizations Under 20 Months Aged Out No longer eligible based on patient's age to complete this topic Procedures Procedure Name Priority Date/Time Associated Diagnosis Comments ULTRASOUND GENERIC (SCAN ORDER) 12/28/2024 COLONOSCOPY GENERIC (SCAN ORDER) 12/12/2022 BONE DENSITY/DEXA Routine 12/24/2019 Osteopenia of multiple sites from Last 3 Months or Most Recently Relevant to Health Maintenance Results * ULTRASOUND GENERIC (SCAN ORDER) (12/28/2024) Anatomical Region Laterality Modality Other 12/28/2024 [facility] Scanned SCANNING Final Resu lt * COLONOSCOPY GENERIC (12/12/2022) 12/12/2022 [facility] Scanned SCANNING Final Resu lt * BONE DENSITY/DEXA (12/24/2019) Anatomical Region Laterality Modality Bone Bone Density Desirae Bernstein PHYSICIAN ASSISTANT DEXA Edited Result - Final from Last 3 Months or Most Recently Relevant to Health Maintenance Insurance [employer] Care Teams Track Subway Repair Supervisor Relationship Specialty Start Date End Date Desirae Bernstein FNP [address] [place] [phone] PCP - General Nurse Practitioner Family 03/22/19
--- OUTSIDE RECORDS SUMMARY | 2025-02-21 15:32 | XMS_ITS | Patient Health Record ---
Author Organization [facility] Address [address] [facility] [address] [place] [address] Care Team Providers Care Guide Domestic Tour Name Role Phone Dimas Tom Unavailable [phone] Hernesto Cary Unavailable [phone] Allergies Allergen (clinical drug ingredient) Drug/Non Drug Allergy documented on EMR Reaction Allergy Type Onset Date Status amoxicillin Amoxicillin Unknown Drug Allergy Act julian clindamycin Clindamycin Unknown Drug Allergy Act julian codeine Codeine Unknown Drug Allergy Active hydrocodone Hydrocodone Unknown Drug Allergy Act julian morphine Morphine Unknown Drug Allergy Active propoxyphene Propoxyphene Unknown Drug Allergy A ctive Reason For Referral No Information Medications Medication SIG (Take, Route, Frequency, Duration) Notes Start Date End Date Status traZODone HCl 50 MG 1 tablet at bedtime Oral Once a day for 30 days Active Venlafaxine HCl ER 150 MG 1 tablet with food Oral Once a day for 30 days Active lamoTRIgine 25 MG 2 tablets Oral once a day for 30 days Active Escitalopram Oxalate 10 MG 1 tablet Orally Once a day for 30 days Active clonazePAM 0.5 MG 1 tablet Oral Twice a day for 30 days As needed slowly taper 01/27/2025 Active Social History Tobacco Use: Social History Observation Description Date Details (start date - stop date) Never Smoker NA - NA Sex Assigned At : Social History Observation Description Sex Assigned At Female Tobacco Control (Standard) Question Answer Notes Tobacco use: Nonsmoker AUDIT-C (Standard) Question Answer Notes Did you have a drink containing alcohol in the p ast year? 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 Active confirmed Vital Signs Heart Rate 88 /min 01/27/2025 Height-cm 157.48 cm 01/27/2025 Blood pressure diastolic 79 mm Hg 01/27/2025 Weight-kg 63.78 kg 01/27/2025 Height 62 in 01/27/2025 Blood pressure systolic 126 mm Hg 01/27/2025 Weight 140.6 lbs 01/27/2025 BMI 25.71 kg/m2 01/27/2025 Encounters Encounter Location Date Provider Diagnosis [place] [address] [place] [address] 12/10/2024 Dimas Tom Bipolar II disorder ([facility]/HCC HHS/HCC) F31.81 ; DAVINA (generalized anxiety disorder) F41.1 ; Stage 3a chronic kidney disease ([facility]/HCC HHS/HCC) N18.31 ; Vitamin D deficiency E55.9 and Malignant carcinoid tumor of lung ([facility]/HCC HHS/HCC) C7A.090 [facility], [facility] [address] [place] [address] 12/30/2024 Hernesto Harrison Encounter for screen ing for depression Z13.31 ; Bipolar II disorder (CMS/HCC HHS/HCC) F31.81 ; DAVINA (generalized anxiety disorder) F41.1 ; Stage 3a chronic kidney disease (CMS/HCC HHS/HCC) N18.31 ; Vitamin D deficiency E55.9 and Malignant carcinoid tumor of lung (CMS/HCC HHS/HCC) C7A.090 [employer] [facility] [address] [place] [address] 01/13/2025 Dimas Vaishali Bipolar II disorder ([facility]/HCC HHS/HCC) F31.81 ; DAVINA (generalized anxiety disorder) F41.1 ; Stage 3a chronic kidney disease (CMS/HCC HHS/HCC) N18.31 ; Vitamin D deficiency E55.9 ; Malignant carcinoid tumor of lung ([facility] HHS/HCC) C7A.090 ; Encounter for screening for cardiovascular disorders Z13.6 and Encounter for screening for depression Z13.31 [facility] [address] [place] [address] 01/27/2025 Dimas Vaishali Encounter for screen ing for depression Z13.31 ; Encounter for screening for cardiovascular disorders Z13.6 ; Bipolar II disorder ([facility] HHS/HCC) F31.81 ; DAVINA (generalized anxiety disorder) F41.1 ; Stage 3a chronic kidney disease ([facility] HHS/HCC) N18.31 ; Vitamin D deficiency E55.9 and Malignant carcinoid tumor of lung ([facility]/HCC) C7A.090 [facility] [address] [facility] [address] [place] [address] 12/10/2024 [facility] [address] [place] [address] 01/07/2025 [facility] [address] [place] [address] 02/14/2025 Dimas Vaishali Assessments Encounter Date Diagnosis (ICD Code) Assessment Notes Treatment Notes Treatment Clinical Notes Section Notes 12/10/2024 Bipolar II disorder ([facility] HHS/HCC) (ICD-10 - F31.81) 12/30/2024 Encounter for screening for depression (ICD-10 - Z13.31) 01/13/2025 DAVINA (generalized anxiety disorder) (ICD-10 - F41.1) 01/13/2025 Bipolar II disorder ([facility]/HCC HHS/HCC) (ICD-10 - F31.81) 01/27/2025 Encounter for screening for depression (ICD-10 - Z13.31) Imported from [facility]: The patient has been under the care of SILVINO Woodard at [facility], with frequent visits and telephone consultations from January 2024 to January 2025. 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 The patient also experienced balance problems, gait abnormality, and frequent falls, leading to an office visit in December 2024. In April 2024, the patient had a urinary tract infection (UTI) and was seen by Sherly Salcido APRN at [facility]. The patient was also seen by Alex Ge MD at [facility] for a malignant neoplasm of the hilus of the left lung in June 2024. 01/13/2025 Stage 3a chronic kidney disease ([facility]) (ICD-10 - N18.31) 12/30/2024 Bipolar II disorder ([facility]) (ICD-10 - F31.81) Assessment and plan reviewed with patient Call for problems with medication, side effects or need for dosage change Compliance issues reviewed Discussed the risks/benefits of this medication Discussed medication side effects Return if symptoms worsen Treatment options reviewed. discussed that it can take weeks to see full therapeutic effects of psychotropic medications. discussed when to seek emergency services. discussed crisis prevention hotline [id number]. 12/10/2024 DAVINA (generalized anxiety disorder) (ICD-10 - F41.1) 01/27/2025 Encounter for screening for cardiovascular disorders (ICD-10 - Z13.6) Imported from [facility]: The patient has been under the care of SILVINO Woodard at [facility], with frequent visits and telephone consultations from January 2024 to January 2025. 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 The patient also experienced balance problems, gait abnormality, and frequent falls, leading to an office visit in December 2024. In April 2024, the patient had a urinary tract infection (UTI) and was seen by Sherly Salcido APRN at [facility]. The patient was also seen by Alex Ge MD at [facility] and [facility] for a malignant neoplasm of the hilus of the left lung in June 2024. 01/27/2025 Bipolar II disorder ([facility]) (ICD-10 - F31.81) Imported from [facility]: The patient has been under the care of SILVINO Woodard at [facility], with frequent visits and telephone consultations from January 2024 to January 2025. 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 The patient also experienced balance problems, gait abnormality, and frequent falls, leading to an office visit in December 2024. In April 2024, the patient had a urinary tract infection (UTI) and was seen by Sherly Salcido APRN at [facility]. The patient was also seen by Alex Ge MD at [facility] and [facility] for a malignant neoplasm of the hilus of the left lung in June 2024. 12/10/2024 Stage 3a chronic kidney disease ([facility]) (ICD-10 - N18.31) 12/30/2024 DAVINA (generalized anxiety disorder) (ICD-10 - F41.1) 01/13/2025 Vitamin D deficiency (ICD-10 - E55.9) 01/13/2025 Malignant carcinoid tumor of lung ([facility]) (ICD-10 - C7A.090) 01/27/2025 DAVINA (generalized anxiety disorder) (ICD-10 - F41.1) Imported from [facility]: The patient has been under the care of SILVINO Woodard at [facility], with frequent visits and telephone consultations from January 2024 to January 2025. 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 The patient also experienced balance problems, gait abnormality, and frequent falls, leading to an office visit in December 2024. In April 2024, the patient had a urinary tract infection (UTI) and was seen by Sherly Salcido APRN at [facility]. The patient was also seen by Alex Ge MD at [facility] and [facility] for a malignant neoplasm of the hilus of the left lung in June 2024. 12/30/2024 Stage 3a chronic kidney disease ([facility] HHS/HCC) (ICD-10 - N18.31) 12/10/2024 Vitamin D deficiency (ICD-10 - E55.9) 12/10/2024 Malignant carcinoid tumor of lung ([facility]/HCC) (ICD-10 - C7A.090) 12/30/2024 Vitamin D deficiency (ICD-10 - E55.9) 01/13/2025 Encounter for screening for cardiovascular disorders (ICD-10 - Z13.6) 01/27/2025 Stage 3a chronic kidney disease ([facility]) (ICD-10 - N18.31) Imported from [facility]: The patient has been under the care of SILVINO Woodard at [facility], with frequent visits and telephone consultations from January 2024 to January 2025. 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 The patient also experienced balance problems, gait abnormality, and frequent falls, leading to an office visit in December 2024. In April 2024, the patient had a urinary tract infection (UTI) and was seen by Sherly Salcido APRN at [facility]. The patient was also seen by Alex Ge MD at [facility] for a malignant neoplasm of the hilus of the left lung in June 2024. 01/13/2025 Encounter for screening for depression (ICD-10 - Z13.31) 01/27/2025 Vitamin D deficiency (ICD-10 - E55.9) Imported from [facility]: The patient has been under the care of SILVINO Woodard at [facility], with frequent visits and telephone consultations from January 2024 to January 2025. 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 The patient also experienced balance problems, gait abnormality, and frequent falls, leading to an office visit in December 2024. In April 2024, the patient had a urinary tract infection (UTI) and was seen by Sherly Salcido APRN at [facility]. The patient was also seen by Alex Ge MD at [facility] for a malignant neoplasm of the hilus of the left lung in June 2024. 12/30/2024 Malignant carcinoid tumor of lung (CMS/HCC HHS/HCC) (ICD-10 - C7A.090) 01/27/2025 Malignant carcinoid tumor of lung (CMS/HCC HHS/HCC) (ICD-10 - C7A.090) Imported from [facility]: The patient has been under the care of SILVINO Woodard at [facility], with frequent visits and telephone consultations from January 2024 to January 2025. 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 The patient also experienced balance problems, gait abnormality, and frequent falls, leading to an office visit in December 2024. In April 2024, the patient had a urinary tract infection (UTI) and was seen by Sherly Salcido APRN at [facility]. The patient was also seen by Alex Ge MD at [facility] for a malignant neoplasm of the hilus of the left lung in June 2024. 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 - Plan: - Continue venlafaxine 75 mg daily, consider increasing to 150 mg or adding escitalopram if no improvement. - Follow-up in a month, or sooner if crying persists. - Referral for counseling. Anxiety - Assessment: Not specified. - Plan: - Continue clonazepam 0.5 mg three times a day. Insomnia - Assessment: Not specified. - Plan: - Continue trazodone 50 mg at bedtime. Mood stabilization - Assessment: Not specified. - Plan: - Continue lamotrigine 25 mg daily. Medication management - Assessment: Patient seeking a new psychiatrist closer to home. - Plan: - Prescriptions sent to [facility]. Social support and transportation - Assessment: Patient meeting a potential roommate for assistance with driving and companionship. - Plan: - Encourage patient to continue seeking social support from friends and family. - Advised to contact [facility] for additional support services. 12/30/2024 Other 1. Anxiety and Depression DAVINA score: 15 (increased from 12) PHQ-9 score: 8 (improved from 15) - Patient reports current anxiety levels at 6/10 and depression at 7/10. - Patient denies hallucinations, delusions, paranoia, or recent nervous breakdowns. - No suicidal or homicidal ideation reported. Plan: a. Continue current medication regimen: - Clonazepam 0.5 mg PO TID (scheduled) - Venlafaxine 150 mg PO daily - Lamotrigine 25 mg PO daily - Escitalopram 5 mg PO daily b. Recommend patient call for walk-in therapy appointment at the clinic, following the specific process provided 2. Insomnia - Patient reports difficulty sleeping without trazodone Plan: a. Refill trazodone (prescription sent to [facility]) Follow-up: - Schedule follow-up appointment with Dr. Tom. Additional Information: - Patient now lives with a roommate, indicating a change in her living situation. 01/13/2025 Other Dayne Smith, female patient with lifelong depression, presenting with worsening depression, anxiety, and frequent crying spells following the end of an 8-year relationship. Major Depressive Disorder Assessment: Patient reports worsening depression symptoms, including frequent crying spells and increased anxiety. She has a history of lifelong depression and was previously on a higher dose of lamotrigine (100 mg), which she felt was more effective. The recent reduction to 25 mg coincided with an increase in depressive symptoms. Patient denies current suicidal ideation. Recent life stressors include the end of an 8-year relationship, though she now has a roommate which she finds helpful. Sleep is reported as adequate (8-9 hours) but interrupted. Plan: - Increase lamotrigine to 50 mg daily (2 tablets of 25 mg) - Continue escitalopram 5 mg daily - Continue venlafaxine ER 150 mg daily - Continue trazodone 50 mg daily for sleep - Follow up in 2 weeks to assess response to medication adjustment - Arrange referral for counseling Generalized Anxiety Disorder Assessment: Patient reports feeling anxious all the time and expresses a need for more anti-anxiety medication. She is currently prescribed clonazepam 0.5 mg up to 3 times daily as needed, but reports variable usage patterns, sometimes taking it once, twice, or with trazodone at bedtime. Plan: - Refill clonazepam 0.5 mg, instructing patient to take up to 3 times daily as needed - Reassure patient that current usage pattern is appropriate - Encourage patient to continue current use pattern, addressing fear of running out of medication Disclaimer: This note has been transcribed using speech recognition software and serves as a reflection of the patient's visit. While efforts have been made to ensure accuracy, there may be errors, including chemical librarian inaccuracies and misspellings of medication names. This document should not be considered a verbatim record, and any discrepancies should be verified with the provider. 01/27/2025 Josh Smith, an elderly female patient with a history of depression and anxiety, presents with ongoing crying spells, recent falls, and relationship issues. Major Depressive Disorder with Anxiety Assessment: Patient reports continued crying spells, though slightly reduced in frequency. Depression appears to be related to relationship issues, as noted by her primary care provider. Anxiety is also present, with some improvement noted with the presence of a roommate. Current medication regimen includes lamotrigine, venlafaxine, escitalopram, clonazepam, and trazodone. Patient has an upcoming counseling appointment scheduled for March 01, which may provide additional support for her mental health concerns. Plan: - Increase escitalopram (Lexapro) from 5 mg to 10 mg PO daily - Continue venlafaxine 150 mg PO daily - Continue lamotrigine 50 mg PO daily - Continue trazodone 50 mg PO at bedtime - Decrease clonazepam to 0.5 mg PO BID, not to exceed twice daily - Informed patient of fall risk associated with clonazepam use - Discussed plan to gradually taper off clonazepam over the next 4-5 months - Follow up with scheduled counseling appointment on March 01 - Return for follow-up in 1 month Falls Assessment: Patient reports two recent falls, one involving a drawer falling on her and another in the bathroom where she fell backward. No dizziness or lightheadedness reported, but patient mentions losing footing. A twisted foot from one fall may have contributed to the subsequent fall. The use of clonazepam is likely increasing fall risk, especially given the patient's age. Plan: - Reduce clonazepam dosage to decrease fall risk (see medication changes in Depression/Anxiet y plan) - Advised patient on fall prevention strategies - Monitor for improvement in balance and reduction in falls with medication adjustment Disclaimer: This note has been transcribed using speech recognition software and serves as a reflection of the patient's visit. While efforts have been made to ensure accuracy, there may be errors, including chemical librarian inaccuracies and misspellings of medication names. This document should not be considered a verbatim record, and any discrepancies should be verified with the provider. Imported from [facility]: The patient has been under the care of SILVINO Woodard at [facility], with frequent visits and telephone consultations from January 2024 to January 2025. 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 The patient also experienced balance problems, gait abnormality, and frequent falls, leading to an office visit in December 2024. In April 2024, the patient had a urinary tract infection (UTI) and was seen by Sherly Salcido APRN at [facility]. The patient was also seen by Alex Ge MD at [facility] for a malignant neoplasm of the hilus of the left lung in June 2024. Plan Of Treatment Next Appt Details Provider Name:Dimas Tom , 02/28/2025 02:30:00 PM, [address], [address], [address], Provider Name:Xiomy Melton, 03/01/2025 01:00:00 PM, [address], [facility] [address], [place], [address], Insurance Providers Payer Name Payer Address Payer Phone Subscriber Number Group Number Insured Name Patient Relationship to Insured Coverage Start Date Coverage End Date [facility] [address] [place] [phone] [id number] Dayne Smith Self - patient is the insured Medical (General) History Medical History History ICD Code Past Psychiatric History: Anxiety Disord er,Panic Disorder Surgical History Surgery Date(Month/Year) shoulder surgery 2021 Hospitalization History Reason Date(Month/Year) Lung cancer 2021
== END 2025-02-21 14:48 | disposition home or self-care (01) ==
PROVIDERS: PCP Nurse Practitioner Family; Visit Provider Nurse Practitioner Family
DX: M81.0 Age-related osteoporosis without current pathological fracture (principal); M85.852 Other specified disorders of bone density and structure, left thigh
CPT/HCPCS: 77080